=== PATIENT | male | born 1960 | race Caucasian/White ===

== ENCOUNTER 2017-07-07 16:41 | Observation (INO) | payer OTHER, SELFPAY ==
[2017-07-07] VITALS (9 sets, daily range): BP systolic 122–168; BP diastolic 69–98; PULSE 74–89; RESP 16–18; TEMP 36.1–36.9; O2SAT 95–100; BMI 34.7; BMI 31.5
--- NOTE | 2017-07-07 17:10 | RAD_ITS ---
STUDY: X-RAY - RIGHT ANKLE REASON FOR EXAM: Male, 57 years old. Deformity. Open fracture after jumping off ladder. TECHNIQUE: 2 view(s) of the ankle. COMPARISON: None. FINDINGS: There is a comminuted transverse fracture of the distal tibial diaphysis with lateral and anterior displacement of the distal fracture fragments. There is also a mildly displaced fracture of the medial malleolus. There is a comminuted fracture of the distal fibular diaphysis with anterior and lateral angulation. There is gross maintenance of the tibiotalar articulation and ankle mortise. Normal visualized talus and calcaneus. The visualized subtalar, talonavicular, calcaneocuboid and tarsal articulations are normal. There is diffuse soft tissue swelling about the ankle. There is a probable fracture along the medial aspect of the tibial shaft where the bone appears to extend beyond the soft tissues. RAD/Ankle 2 Views IMPRESSION: Displaced fracture of the distal tibia and fibula with probable open fracture medially. Electronically Signed: Armando Ram DO at 17:25 EDT Tel [phone], Service support ,
[2017-07-07 17:40] LABS: Absolute Neutrophil Count 5.9 X10^3/uL (2.0-7.7); Basophil# 0.02 X10^3/uL; Basophil% 0.2 % (0-1); Eosinophil# 0.22 X10^3/uL; Eosinophils% 2.3 % (0-5); Hematocrit 43.7 % (40-54); Hemoglobin 14.7 g/dl (13.0-16.5); Lymphocyte % 25.1 % (19-41); Mean Corp Hgb Conc 33.6 g/gl (32-36); Mean Corpuscular Hgb 32.2 pg (27.0-32.0); Mean Corpuscular Volume 95.6 fL (80-94); Mean Platelet Vol. 8.9 fl (6.2-12.0); Monocyte# 1.04 X10^3/uL; Monocyte% 10.9 % (0-10); Neutrophil # 5.87 X10^3/uL (2.7-7.7); Neutrophil % 61.2 % (47-70); Platelet Count 278 K/mm3 (150-450); RBC Distribution Width CV 13.6 % (11.6-14.6); RBC Distribution Width SD 47.3 fl (35.1-43.9); Red Blood Count 4.57 M/mm3 (4.6-6.2); White Blood Count 9.6 K/mm3 (4.4-11.0)
[2017-07-07 17:42] LABS: POSITIVE COUNT NO; POSITIVE DIFFERENTIAL NO; POSITIVE MORPHOLOGY NO
[2017-07-07 17:48] LABS: Anion Gap 7 (5-15); BUN 15 mg/dL (7-18); BUN/Creat Ratio 14.3 RATIO (10-20); Calcium,Total 8.5 mg/dL (8.5-10.1); Chloride 105 mmol/L (98-107); Creatinine, Serum 1.05 mg/dL (0.70-1.30); EST Glomerular Filtration Rate 77 mL/min (>60); Est Glom Filt Rate - Afr Amer 93 mL/min (>60); Estimated Creatinine Clearance 88.07 ml/min; Glucose 91 mg/dL (74-106); Potassium 3.7 mmol/L (3.5-5.1); Sodium Level 140 mmol/L (136-145)
--- NOTE | 2017-07-07 18:31 | CT_ITS ---
STUDY: CT RIGHT ANKLE WITHOUT CONTRAST REASON FOR EXAM: Male, 57 years old. RT TIB FIB FX AFTER JUMPING OFF A LADDER ON A SEMI RADIATION DOSAGE (If Supplied By Facility): CTDIvol = ( 15.35 ) mGy, DLP = ( 468.90 ) mGycm TECHNIQUE: Thin section transaxial imaging of the ankle was obtained, with sagittal and coronal reconstructed images. Individualized dose optimization techniques were used for this CT. COMPARISON: CR Ankle Jul 07 2017 5:20pm FINDINGS: There is an overlying fiberglass cast. Fracture medial malleolus. Fracture of the tip of the distal fibula. Fracture of the distal third of the fibula. Comminuted distal tibial fracture. There is articular extension. The distal tibial fracture is exposed to the open air. Normal talus, calcaneus, navicular and cuboid tarsal bones. Normal subtalar, talonavicular and calcaneocuboid articulations. Normal navicular-cuneiform, cuneiform tarsal bones and intercuneiform articulations. Normal tarsometatarsal articulations and visualized metatarsi. The soft tissue structures are grossly normal. CT/Extremity Lower without Contra IMPRESSION: Open fracture is noted involving the ankle. Comminuted intra-articular fracture of the tibial plafond. Fracture medial malleolus. Fracture distal fibula. Electronically Signed: Marko Dent MD at 19:33 EDT , Service support ,
--- NOTE | 2017-07-07 18:35 | ED.DCSUM_ITS ---
- ER Visit Summary Date of Service: 07/07/17 Chief Complaint: Right ankle injury History of Present Illness: The patient is a 57 M with really no medical problems who started to fall off of a trailer about 10 feet high so jumped landing on his right ankle. He immediately noted a deformity and open wound. He denies any other injuries. Currently rates his pain as 3 out of 10. His last tetanus immunization was about 1 month ago. Physical Examination: Afebrile vitals are stable Heart regular Lungs clear Abdomen soft Active full range of motion of the bilateral upper extremities and left lower extremities no evidence of head trauma Heart regular rate and rhythm Lungs clear Abdomen soft Patient has an obvious deformity of the right ankle but he is able to wiggle his toes motor is intact he has normal sensation light touch and a palpable dorsalis pedis pulse there is an open wound over the medial lower leg above the ankle roughly 2 cm with mild oozing no evidence of arterial bleeding Test Results: Ankle x-ray shows displaced fracture of the distal tibia and fibula CBC BMP and INR are unremarkable. Emergency Department Course and Treatment: Patient declined pain medications. He was given IV Ancef. I spoke to Dr. Lopez who asked that we reduce this to the best anatomical alignment possible. Patient was placed in an Ortho-Glass posterior splint with a stirrup. Dr. Lopez also requested a CT and will plan for taking the patient to the operating room for washout and external fixation. Treatment Plan: [] Disposition: To OR Impression: Open right distal tibia and fibula fracture This note was generated with [employer] dictation software. It may contain incorrect words, spelling, and punctuation that were not noted in review of the chart prior to signing ED Disposition - Plan for ED Patient: Chief Complaint: Lower Extremity Injury Referrals: Ahsan Lama MD [Primary Care Provider] -
[2017-07-07] MEDS: Cefazolin 2 GM in 0.9% Normal Saline 100 ML IV (19:00)
--- NOTE | 2017-07-07 20:31 | PCM.HP.STD ---
History of Present Illness Date of Admission: 07/07/17 Chief Complaint: Right leg pain The patient is a 57 year old M otherwise healthy patient presents today after falling off a ladder. Patient states he was working on a ladder and began to tip. He jumped trying to catch himself and landed from about 10 feet up in the year. He felt his ankle give way from underneath him. He presented to the emergency department with 10 out of 10 pain and an open wound on his leg with deformity of the ankle. In the emergency department sterile dressing was placed and patient had the fracture provisionally reduced. Patient denies any associated numbness and tingling. He denies nicotine use. He states he stopped smoking in 1996. Patient denies any history of diabetes or other medical conditions. He has not seen a doctor in 15 years. Patient states the pain is better with immobilization and elevation as well as with the splint. It is worse with motion. Pain is located at the distal leg. Medication list was reviewed with the patient. Past Medical History Allergies Sulfa (Sulfonamide Antibiotics) Allergy (Verified 07/07/17 16:46) Unknown Home Medications: Ambulatory Orders Medication Instructions Recorded NK [NK] 07/07/17 Surgical History: no surgical history Lives: Spouse/ Significant Other Smoking Status: Never smoker Tobacco Use: Non-smoker Alcohol: Occasional - Near daily beer intake Drugs: None Review of Systems Constitutional: Denies: Chills, Fever, Weight Change HEENT: Denies: Head Aches, Sinus Congestion, Sinus Drainage Cardiovascular: Denies: Chest Pain, Palpitations Respiratory: Denies: Cough, Shortness of breath at rest, Sputum production Gastrointestinal: Denies: Abdominal Pain, Nausea, Vomiting Genitourinary: Denies: Dysuria Musculoskeletal: Reports: Joint Pain - See HPI Skin: Reports: Wounds - See HPI Neurological: Denies: Numbness, Tingling, Focal weakness Psychiatric: Denies: Anxiety, Depression, Homicidal Ideations, Suicidal Ideations Hematologic/ Lymphatic: Denies: Easy Bruising, Easy Bleeding VTE Information - Inpt Only VTE Present on Admission: No VTE Mechan Device Prophylaxis: SCD's, Thigh High MARLENE Hose VTE Pharm Prophylaxis ordered?: Yes Objective: CT scan and x-rays of right ankle reveal comminuted intra-articular P1 fracture of the right tibia and distal fibula fracture - Physical Exam General: Alert, Oriented x3, Cooperative HEENT: Atraumatic Oral: Moist Mucosa Neck: No JVD Lungs: Normal air movement Abdomen: Non-Distended Extremities: - - Right lower extremity: Calves are soft and supple with soft compartments. Sensations intact light touch SP, DP, tibial nerve distributions. Patient does have a splint on with noticeable blood at site of wound. Toes are warm and pink with brisk cap refill. Patient is able to wiggle toes with intact motor. Vital Signs Temp Pulse Resp BP Pulse Ox 98.2 F 84 16 127/69 H 99 07/07/17 16:43 07/07/17 19:55 07/07/17 19:55 07/07/17 19:55 07/07/17 19:55 Oxygen Delivery Method Room Air Weight: 270 lb 8.115 oz Body Mass Index (BMI) 34.7 Laboratory Tests Past 24 Hrs 07/07/17 07/07/17 07/07/17 16:50 16:50 16:50 WBC 9.6 RBC 4.57 L Hgb 14.7 Hct 43.7 MCV 95.6 H MCH 32.2 H MCHC 33.6 RDW 13.6 RDW Differential 47.3 H Plt Count 278 MPV 8.9 Immature Gran % (Auto) 0.300 Neut % (Auto) 61.2 Lymph % (Auto) 25.1 Clare % (Auto) 10.9 H Eos % (Auto) 2.3 Baso % (Auto) 0.2 Absolute Neuts (auto) 5.9 Absolute Lymphs (auto) 2.40 Total Counted Not Reportable PT 13.0 INR 1.0 Sodium 140 Potassium 3.7 Chloride 105 Carbon Dioxide 28.0 Anion Gap 7 BUN 15 Creatinine 1.05 Estim Creat Clear Calc 88.07 Est GFR (MDRD) Af Amer 93 Est GFR (MDRD) Non-Af 77 BUN/Creatinine Ratio 14.3 Glucose 91 Calcium 8.5 Assessment/Plan Grade 2 open right pilon fracture Patient was counseled on risks and benefits of treatment and natural history of this disease process. Based on the nature of the open fracture he is at risk for tetanus and infection. He was administered 2 g of Ancef in the emergency department. His tetanus is up-to-date. At this time I recommended provisional fixation and irrigation debridement of the wound which includes an external fixator. Risks and benefits of the procedure were discussed the patient including but not limited to blood loss, DVTs, PEs, neurovascular damage, infection and general risk of anesthesia. Patient lives a healthy male. At this time he wishes to proceed and is able to sign informed consent. We will proceed with surgery tonight. [facility] Office:
--- NOTE | 2017-07-07 20:45 | RAD_ITS ---
STUDY: X-RAY - RIGHT ANKLE REASON FOR EXAM: Male, 57 years old. RIGHT ANKLE EXTERNAL FIXATION. A LEFT LATERAL CALCANEUS VIEW WAS TAKEN FOR COMPARISON AND MARKED LEFT ON THE IMAGE TECHNIQUE: 5 view(s) of the ankle. COMPARISON: CR Ankle Jul 07 2017 5:20pm FINDINGS: Comminuted distal fibular fracture. Comminuted distal tibial fracture. Fracture of the medial malleolus. Sequential images demonstrate placement of an external fixator. RAD/Ankle 2 Views IMPRESSION: Sequential images demonstrate placement of an external fixator. Electronically Signed: Marko Dent MD at 22:39 EDT , Service support ,
--- NOTE | 2017-07-07 22:05 | PCM.OPRPT ---
Report of Operation Date of Procedure: 07/07/17 Pre-Operative Diagnosis: Grade 2 open right Pilon fracture Post-Operative Diagnosis: Grade 2 open right Pilon fracture Surgery/Procedure Performed:: 1. Irrigation debridement skin subcutaneous tissue muscle and bone right leg Pilon fracture. 2. Placement of multiplanar ex fix right leg. 3. Complex wound closure right leg wound 7 cm. 4. Fluoroscopic examination of left calcaneus Description of Surgical Findings:: Patient had 3 cm in length overall laceration credit compliance officer: Mima Albert Type of Anesthesia:: Spinal Anesthesiologist: Spike Moore Special Medications: 2 Grams Ancef Specimen's removed: Small 1 cm x 1 cm portion of cortical bone was denuded of soft tissue and nonviable was removed from the wound Estimated Blood Loss (mL): 15 Fluids Replaced: Crystalloid Description of Procedure: Brief history operative indications: 57-year-old male who presented to the hospital after a 10 foot fall from a ladder. Patient presented with a primary complaint of right leg pain with open wound. He was consented for surgery recommended open debridement and irrigation with placement of external fixator. Also we noticed a contusion on his left posterior medial heel while prepping him he had not previously complained of. We elected to fluoroscopically examine this. Patient demonstrated understanding of the risks and benefits of surgery as noted in his H&P and was able signed informed consent. Procedure: On the date of the procedure patient's right leg was marked in the preoperative area. He was brought back to the operating room he was transferred to the table in the supine position. Spinal anesthesia was placed with the patient sitting up and patient was placed back in the supine position. All bony prominences were identified well-padded. Bump was placed underneath the right hip and blankets were placed underneath the right leg to elevate it. At this time we noted the posterior medial contusion in the left posterior calcaneus. Tourniquet was placed on the right upper thigh and the splint was removed. At this time we are able to fully examine the wound patient was noted to have a 3 cm wound that was L-shaped over the medial ankle/distal leg. Right lower extremity was then prepped in a sterile fashion using Betadine prep while the surgeon scrubbed. Upon reentering the room the right lower extremity was draped in a standard orthopedic fashion and a timeout was called. Everyone agreed up on the side, the site, and the procedure to be performed, patient's identity and antibiotics given. Extension of the wound was marked out proximally and distally to extend wound and explore the wound. Esmarch bandage was used to examine at the extremity and tourniquet was placed up to 250 mmHg. Skin was incised proximally and distally roughly 2 cm for a total wound. Sharp dissection was taken through skin and blunt dissection was taken through soft tissues. It was noted that there was a fair amount of degloving of the fracture site. We then directed our attention towards the skin with a traumatized necrotic tissue was debrided. We debrided 2 mm of tissue on both the medial and lateral portions of the L-shaped laceration. We then debrided fascia fatty tissue muscle and bone from the wound. All visible debris was removed grossly. A small 1 cm x 1 cm fragment of cortical bone medially was removed from the wound because it had no soft tissue attachments. Fracture was then delivered to the wound and fracture was aggressively debrided using curettes and rongeur. After this the fracture was then again delivered through the wound and 6 L of normal saline under low pressure lavage were irrigated throughout the wound. Once this was completed attention was directed towards the heel. Live fluoroscopy was used to found the posterior inferior quarter of the calcaneus and an incision was made on the skin in horizontal fashion. Starting point was found with the tip of the calcaneal pin and once verified with live fluoroscopy calcaneal pin was placed in a through and through fashion placing a incision on the lateral heel once the pin was tenting the skin. Once the calcaneal pin was placed we then went to the tibia where the anteromedial cortex was marked and 2 small incisions were made using a 15 blade scalpel after marking them out with the parallel pin guide. The holes were predrilled and bicortical pins were placed these were 5 mm pins. Once these pins were placed position was verified under live fluoroscopy. External fixator pins and bars were then assembled and traction was placed on the fracture and ankle. Live fluoroscopy was used to verify the fracture while the external fixator was tightened down. Once initial fixation was done a single pin was placed in the first metatarsal using live fluoroscopy to verify pin placement. Once this was done the foot was dorsiflexed in appropriate position to help reduce the ankle and tightened into place with an additional connector bar. Final x-rays were taken showing the fracture was appropriately reduced and joint was distracted. 3-0 nylon suture was then used to close the 7 cm wound using mattress sutures tension on the skin. Once this was finished Xeroform dressing was placed around all pin sites it over the laceration repair. Sterile dressing was placed, compressive dressing was placed. Tourniquet was let down an Christiano bandage was placed. Excessive pins were cut and pin protectors were placed on the tops of the pins. At this time we directed our attention towards the left heel with a sterile dressing in place the drapes were removed and a lateral x-ray of the left calcaneus was taken and no fracture was identified at this time. Patient was then awakened by anesthesia transferred to the orthopaedic hospital and transferred to the PACU for recovery in stable condition. Operative plan: Patient will receive 24 hours of antibiotics. Plan will be for discharge tomorrow. I will plan for follow-up with an orthopedic traumatologist this week for definitive care and fixation. Patient be placed on baby aspirin twice a day for DVT prophylaxis. Grafts/Implants Used: synthes ex-fix - Complications none - Admit VTE Documentation VTE Present on Admission: No VTE Mechan Device Prophylaxis: SCD's VTE Pharm Prophylaxis ordered?: Yes
--- NOTE | 2017-07-07 22:34 | RAD_ITS ---
STUDY: X-RAY - LEFT CALCANEUS REASON FOR EXAM: Male, 57 years old. BRUISING TO LEFT HEEL, S/P TRAUMA AND RIGHT ANKLE FX TECHNIQUE: 2 view(s) of the calcaneus were obtained. COMPARISON: None. FINDINGS: Normal visualized calcaneus. RAD/Calcaneus min 2 Views IMPRESSION: Normal x-ray examination of the calcaneus. Electronically Signed: Marko Dent MD at 23:04 EDT , Service support ,
--- NOTE | 2017-07-07 22:35 | PCM.DC.TKR ---
Discharge Diet: No Restrictions Discharge Activity: May Not Drive May shower in (days): 5 May resume sexual activity in: No Restrictions Ice area for (Minutes): 20 - every hour while awake. Weight Bearing Status: No weight bearing Elevate: Operative Extremity Call your doctor if your incision/area has: Continuous Slow Oozing, Sudden Increased Bleeding, Increased Pain/ Swelling, Increased Redness, Foul Smelling Discharge Call your doctor if you observe: Fever of 101 or Higher, Coldness, Increased Pain, Numbness or Tingling, Change in Color, Calf discomfort, Uncontrolled pain Change Dressing in (Days):: 2 - and daily as needed. Cleanse incision/area with: Keep Dressing Clean & Dry Additional Dressing/Incision Instructions:: May remove operative dressing on postop day 2 after that: 1. Keep laceration covered with sterile dressing change daily. 2. Every day take a 50-50 mixture of hydrogen peroxide and warm water and use a Q-tip to remove any crusts from pin sites to allow for pin site drainage and prevent infections Allergies/Adverse Reactions: Allergies Sulfa (Sulfonamide Antibiotics) Allergy (Verified 07/07/17 16:46) Unknown Medications to take at Discharge Acetaminophen [Tylenol] 1,000 mg PO Q8 #90 tab 07/08/17 Aspirin [Aspirin, Baby] 81 mg PO BIDCM #30 tab.chew 07/08/17 Ensure Enlive 120 ml PO TIDCM liquid 07/08/17 Famotidine [Pepcid] 20 mg PO DAILY #30 tab 07/08/17 Oxycodone [Oxyir] 5 - 10 mg PO Q4H PRN PRN 6 Days #60 tablet 07/08/17 Senna/Docusate Sodium [Senokot-S] 2 tablet PO BID PRN PRN tablet 07/08/17 The following prescriptions were given: Oxycodone [Oxyir] 5 - 10 mg PO Q4H PRN PRN 6 Days #60 tablet PRN Reason: Pain Acetaminophen [Tylenol] 1,000 mg PO Q8 #90 tab Famotidine [Pepcid] 20 mg PO DAILY #30 tab Aspirin [Aspirin, Baby] 81 mg PO BIDCM #30 tab.chew Primary Care Physician: Ahsan Lama MD [Primary Care Provider] - Please Follow Up With: Deniz Alfonso MD - [phone] When: Orthopaedic traumatologist Jojo Saunders, 07-10-2017
--- NOTE | 2017-07-07 22:36 | RAD_ITS ---
STUDY: X-RAY - RIGHT ANKLE REASON FOR EXAM: Male, 57 years old. POST OP EXTERNAL FIXATION OF RIGHT ANKLE FX TECHNIQUE: 3 view(s) of the ankle. COMPARISON: CR Ankle Right Jul 07 2017 8:22pm FINDINGS: Comminuted distal fibular fracture. Comminuted distal tibial fracture. Fracture of the medial malleolus. Ankle mortise appears intact. Tibial fracture extends to the tibial plafond. External fixator in place. There is overlying postoperative soft tissue air. Normal visualized talus and calcaneus. RAD/Ankle 2 Views IMPRESSION: Successful external fixator placement. Electronically Signed: Marko Dent MD at 23:17 EDT , Service support ,
[2017-07-07] MEDS: Famotidine 20 MG Tablet PO (23:39)
[2017-07-07] MEDS: Lactated Ringers 1,000 ML 125 ML IV (23:52)
[2017-07-08 00:15] VITALS: BP 168/93; PULSE 95; RESP 18; TEMP 37.1; O2SAT 96
[2017-07-08 01:11] VITALS: BP 151/76; PULSE 96; RESP 18; TEMP 37.3; O2SAT 96
[2017-07-08] MEDS: oxyCODONE 5 MG Tablet PO ×5 (02:09→21:05)
[2017-07-08] MEDS: Acetaminophen 500 MG Tablet 1000 MG PO ×3 (02:10→21:05)
[2017-07-08] MEDS: Cefazolin 1 GM/50 ML BAG IV ×2 (02:37→11:22)
[2017-07-08 03:11] VITALS: BP 139/71; PULSE 80; RESP 18; TEMP 37.4; O2SAT 96
--- NOTE | 2017-07-08 07:10 | PN.ORTHO_ITS ---
Subjective: Patient is doing well this morning. Did have a fair amount of pain overnight. Reports no numbness and tingling in his foot. Did get IV pain medicines overnight. Currently getting 24 hours of antibiotics. Foot is elevated. No chest pain or shortness of breath. Objective: 2 views of the left calcaneus reveal no fractures on x-ray. Operative ankle films show good sagittal and coronal alignment of the fracture. - Physical Exam General: Alert, Oriented x3, Cooperative Extremities: - - Right lower extremity: Dressing is clean dry and intact. Sternal fixator is intact. Pins and bars are clear of skin. Wiggles all toes. Digits are warm and pink with brisk cap refill. Sensations intact light touch SP/DP/sural/saphenous/tibial nerve distributions. Left foot: Contusion over the posterior medial ankle. Sensations intact neurovascular intact distally. Vital Signs Temp Pulse Resp BP Pulse Ox 99.4 F H 80 18 139/71 H 96 07/08/17 03:11 07/08/17 03:11 07/08/17 03:11 07/08/17 03:11 07/08/17 03:11 Oxygen Delivery Method Room Air Weight: 245 lb 8.115 oz Body Mass Index (BMI) 31.5 Intake and Output for Last 24 Hours 07/06/17 07/07/17 07/08/17 23:59 23:59 23:59 Intake Total 400 / 400 1389 / 1389 Output Total 1075 / 1075 Balance 400 / 400 314 / 314 Assessment/Plan Grade 2 open right pilon fracture. Postop day 1 irrigation debridement and placement of external fixator right leg 1. 24 hours of antibiotics 2. Nonweightbearing right lower extremity 3. Physical therapy: Crutch training/ADLs. 4. DVT prophylaxis: 81 mg aspirin twice daily 5. Aggressive ice and elevation, elevated above level of heart keep cold bags of ice. 6. Pain control: Continue current regimen wean from IV antibiotics 7. Disposition: Plan for discharge home today if pain under control and completes 24 hours of antibiotics. Plan is for follow-up in [place] with an orthopedic traumatologist of this week. Pin care was discussed with the patient pin care instructions on the discharge instructions patient is to do pin care once a day with 50-50 mixture of hydrogen peroxide and water. [facility] Office:
[2017-07-08 08:15] VITALS: BP 161/84; PULSE 68; RESP 16; TEMP 36.8; O2SAT 98
[2017-07-08] MEDS: Aspirin 81 MG TAB.CHEW PO ×2 (08:16→17:00)
--- NOTE | 2017-07-08 08:40 | CASEMGMT ---
Call received from Dr. Lopez with request for appt on with Dr. Lindsey, and to have pt take packet with xray discs and H/P, DC summary to appt. Sec. made appt, copy to go with pt along with packet on dc. [facility] nurse is aware. Blayne QUEENN RN ACM
[2017-07-08] MEDS: Famotidine 20 MG Tablet PO (08:59)
[2017-07-08] MEDS: 0.9% NaCl Peripheral Flush Adult/Peds IV ×3 (09:23→14:35)
--- NOTE | 2017-07-08 10:00 | PCA ---
marquita called and asked if we could make an apt for patient for yessi marmolejo an orthopaedic taumatologist up in [place]. I made it for july 10 at 1330 pm.
--- NOTE | 2017-07-08 14:03 | CHAPLAIN ---
Type of Pastoral Visit _x__ Initial Visit ___ Follow-up Visit ___ On-call Visit ___ General Patient Visit ___ Spiritual Assessment ___ Family Conference ___ Bereavement ___ Rapid Response ___ Code Blue ___ Other (describe below) Pastoral Care Referral From _x__ Patient ___ Family ___ Nurse ___ Physician ___ Esthetician ___ Skate Maker ___ Other (describe below) Sacrament/Intervention _x__ Active listening ___ Anointing ___ Uatsdin ___ Bereavement ___ Communion ___ Jennifer exploration ___ ___ Life review _x__ Prayer ___ Reconciliation ___ Sacrament of Sick _x__ Supportive presence ___ Wedding ___ Other (describe below) Pastoral Comments
[2017-07-08 14:25] VITALS: BP 139/81; PULSE 84; RESP 16; TEMP 36.9; O2SAT 97
[2017-07-08 20:25] VITALS: BP 119/74; PULSE 77; RESP 18; TEMP 37.2; O2SAT 97
--- NOTE | 2017-07-08 21:05 | NURSING ---
Addendum entered by Beverley Barrientos 07/08/17 22:25: At around 2104, this RN still had not seen Dr. Lopez and pt stated he still had not been in. This RN discussed with pt the option of staying one more night to make sure his pain is under control and that he gets a little more rest before going home. Pt seemed to be in agreement with this RN. Original Note: Pt was hoping to see Dr. Jessica granados to discuss his opinions on pt being discharged [place].
[2017-07-09 02:25] VITALS: BP 146/76; PULSE 71; RESP 18; TEMP 36.9; O2SAT 98
[2017-07-09] MEDS: oxyCODONE 5 MG Tablet PO (03:07)
[2017-07-09] MEDS: Acetaminophen 500 MG Tablet 1000 MG PO (06:08)
--- NOTE | 2017-07-09 07:33 | PCM.PN.ORT ---
Subjective: The patient was sitting in bed upon examination. Patient denies any chest pain, shortness of breath, dizziness, lightheadedness, nausea or vomiting, or calf pain. Patient denies any numbness and tingling into the right lower extremity. Pain is controlled on medications. No adverse overnight events. Plan is for patient to see Dr. Alfonso tomorrow in [place] for further treatment of the right ankle fracture. Objective: Vital signs stable and afebrile. Patient is able to wiggle his toes Sensation is intact to light touch to saphenous, sural, superficial and deep peroneal, and distribution. Dressing over ex-fix is without breakthrough drainage. - Physical Exam General: Alert, Oriented x3, Cooperative, No apparent distress Vital Signs Temp Pulse Resp BP Pulse Ox 98.5 F 71 18 146/76 H 98 07/09/17 02:25 07/09/17 02:25 07/09/17 02:25 07/09/17 02:25 07/09/17 02:25 Oxygen Delivery Method Room Air Weight: 111.36 kg Body Mass Index (BMI) 31.5 Intake and Output for Last 24 Hours 07/07/17 07/08/17 07/09/17 23:59 23:59 23:59 Intake Total 400 / 400 2439 / 2439 500 / 500 Output Total 1775 / 1775 1025 / 1025 Balance 400 / 400 664 / 664 -525 / -525 Assessment/Plan 1. S/P grade 2 open right pilon fracture POD #2 2. Continue Pain Medications: Tylenol and OxyIR 3. DVT Prophylaxis: 81 mg aspirin 4. PT/OT: Crutches, nonweightbearing right lower extremity 5. Encouraged Incentive Spirometry 6. Disposition: Patient is to continue with ice and elevation above the level of the heart. He is to continue to do pin care once a day with 50-50 mixture of hydrogen peroxide and water. Plan is for patient to see orthopedic traumatologist tomorrow in [place]. Patient has all medications for discharge.
--- NOTE | 2017-07-09 07:39 | PN.ORTHO_ITS ---
Subjective: The patient was sitting in bed upon examination. Patient denies any chest pain , shortness of breath, dizziness, lightheadedness, nausea or vomiting, or calf pain. Patient denies any numbness and tingling into the right lower extremity. Pain is controlled on medications. No adverse overnight events. Plan is for patient to see Dr. Alfonso tomorrow in [place] for further treatment of the right ankle fracture. Objective: Vital signs stable and afebrile. Patient is able to wiggle his toes Sensation is intact to light touch to saphenous, sural, superficial and deep peroneal, and distribution. Dressing over ex-fix is without breakthrough drainage. - Physical Exam General: Alert, Oriented x3, Cooperative, No apparent distress Vital Signs Temp Pulse Resp BP Pulse Ox 98.5 F 71 18 146/76 H 98 07/09/17 02:25 07/09/17 02:25 07/09/17 02:25 07/09/17 02:25 07/09/17 02:25 Oxygen Delivery Method Room Air Weight: 111.36 kg Body Mass Index (BMI) 31.5 Intake and Output for Last 24 Hours 07/07/17 07/08/17 07/09/17 23:59 23:59 23:59 Intake Total 400 / 400 2439 / 2439 500 / 500 Output Total 1775 / 1775 1025 / 1025 Balance 400 / 400 664 / 664 -525 / -525 Assessment/Plan 1. S/P grade 2 open right pilon fracture POD #2 2. Continue Pain Medications: Tylenol and OxyIR 3. DVT Prophylaxis: 81 mg aspirin 4. PT/OT: Crutches, nonweightbearing right lower extremity 5. Encouraged Incentive Spirometry 6. Disposition: Patient is to continue with ice and elevation above the level of the heart. He is to continue to do pin care once a day with 50-50 mixture of hydrogen peroxide and water. Plan is for patient to see orthopedic traumatologist tomorrow in [place]. Patient has all medications for discharge.
[2017-07-09 08:25] VITALS: BP 160/89; PULSE 86; RESP 18; TEMP 37.3
== END 2017-07-09 09:24 | disposition home or self-care (01) ==
LOC: ED 18:06 → SDC 20:20 → AC 20:22 → MS2 22:05 → SDC 07-08 00:07 → MS2 07-08 09:13
PROVIDERS: Admitting Provider Specialist; Emergency Provider Emergency Medicine; Family Provider Family Medicine; PCP Family Medicine; Visit Provider Specialist
PROC: (CPT 27814; principal; 2017-07-07 20:00)
DX: S82.871B Displaced pilon fracture of right tibia, initial encounter for open fracture type I or II (principal); S82.831B Other fracture of upper and lower end of right fibula, initial encounter for open fracture type I or II; Y93.89 Activity, other specified; Y92.89 Other specified places as the place of occurrence of the external cause; Z87.891 Personal history of nicotine dependence; W11.XXXA Fall on and from ladder, initial encounter
CPT/HCPCS: 01480; 11012; 13121; 20692; 27825; 64450; 73600; 73650; 73700; 76000; 80048; 85025; 85610; 96361; 96365; 96366; 96375; 96376; 97162; 97166; 99218; 99285; J7030; J7120; A4216; G0378

== ENCOUNTER → 2018-01-14 14:10 | Outpatient (CLI) | payer OTHER, SELFPAY ==
--- NOTE | 2018-01-14 14:14 | CT_ITS ---
STUDY: CT RIGHT ANKLE WITHOUT CONTRAST REASON FOR EXAM: Male, 57 years old. Right ankle fracture June 2017 with multiple surgeries, with hardware and skin grafting. RADIATION DOSAGE (If Supplied By Facility): CTDIvol = ( 15.35 ) mGy, DLP = ( 681.20 ) mGycm TECHNIQUE: Thin section transaxial imaging of the ankle was obtained, with sagittal and coronal reconstructed images. Individualized dose optimization techniques were used for this CT. COMPARISON: X-ray calcaneus, ankle 07/07/2017. CT lower extremity 07/07/2017.. FINDINGS: External fixator device in place. Screw fixation of the medial malleolus. Screw fixation of the tibial plafond fracture. Mild generalized osteopenia of the distal tibia and fibula above the fractures. More prominent osteopenia throughout the foot. 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 Differential considerations might include reflex sympathetic dystrophy as a sequela of traumatic injury. Comminution with persistent nonunion of the distal tibia metadiaphyseal fracture. Below that, fractures involving screw fixation of the medial malleolus, and screw fixation of the tibial apophysis appears to be fused. There is comminution with incomplete union of the distal fibular diaphysis fracture. There is extraosseous bone formation across the tibiofibular interosseous ligament. The tibiotalar articulation is preserved. The dome of the talus shows no defects. The subtalar joint is preserved. There is relatively diffuse edema within the subcutaneous soft tissues just above and around the ankle, and extending into the dorsum and dorsal lateral aspects of the foot. This is associated with skin thickening surrounding the medial ankle. There is no visible soft tissue fluid collection. CT/Extremity Lower without Contra IMPRESSION: Incomplete union of the distal tibial metadiaphyseal fracture, and of the fibular diaphyseal fracture. Electronically Signed: Erik Tadeo, at 10:25 EDT Tel , Service support ,
== END ==
PROVIDERS: Family Provider Family Medicine; PCP Family Medicine; Visit Provider Orthopaedic Surgery
DX: S82.871 Displaced pilon fracture of right tibia (principal); X58.XXXD Exposure to other specified factors, subsequent encounter
CPT/HCPCS: 73700

== ENCOUNTER → 2018-11-23 14:46 | Outpatient (CLI) | payer OTHER, SELFPAY ==
--- NOTE | 2018-11-23 14:53 | CT_ITS ---
STUDY: CT LOWER EXTREMITY WITHOUT CONTRAST RIGHT REASON FOR EXAM: Male, 58 years old. Posttraumatic arthritis. RADIATION DOSAGE (If Supplied By Facility): CTDIvol = ( 6.18 ) mGy, DLP = ( 139.50 ) mGycm. Individualized dose optimization techniques were used for this CT.? TECHNIQUE: Axial images were obtained from the distal tibial shaft through the ankle without contrast. Coronal and sagittal reformats were performed. COMPARISON: 01/14/2018. FINDINGS: There is diffuse bone demineralization consistent with disuse. There is united fracture of the distal fibular shaft with mild periosteal reaction. Status post screw fixation of the distal tibia and medial malleolus. There is bridging callus. There is incomplete internal union. There is marked narrowing of the tibiotalar joint. There is mild narrowing of the talofibular joint. Alignment of the ankle and hindfoot is normal. No new fracture. Moderate subcutaneous edema. CT/Extremity Lower without Contra IMPRESSION: 1. Marked tibiotalar narrowing consistent with arthrosis. 2. Healing fracture of the distal tibia. 3. United distal fibular shaft fracture. 4. Bone demineralization. Electronically Signed: Nita Rodriguez MD at 17:45 EDT Tel , Service support ,
--- NOTE | 2018-11-23 15:12 | CT_ITS ---
STUDY: CT LOWER EXTREMITY WITHOUT CONTRAST RIGHT REASON FOR EXAM: Male, 58 years old. Posttraumatic arthritis. RADIATION DOSAGE (If Supplied By Facility): CTDIvol = ( 6.18 ) mGy, DLP = ( 139.50 ) mGycm. Individualized dose optimization techniques were used for this CT.? TECHNIQUE: Axial images were obtained from the distal tibial shaft through the ankle without contrast. Coronal and sagittal reformats were performed. COMPARISON: 01/14/2018. FINDINGS: There is diffuse bone demineralization consistent with disuse. There is united fracture of the distal fibular shaft with mild periosteal reaction. Status post screw fixation of the distal tibia and medial malleolus. There is bridging callus. There is incomplete internal union. There is marked narrowing of the tibiotalar joint. There is mild narrowing of the talofibular joint. Alignment of the ankle and hindfoot is normal. No new fracture. Moderate subcutaneous edema. CT/Coronals Sag Multi Obl 3-D Rec IMPRESSION: 1. Marked tibiotalar narrowing consistent with arthrosis. 2. Healing fracture of the distal tibia. 3. United distal fibular shaft fracture. 4. Bone demineralization. Electronically Signed: Nita Rodriguez MD at 17:45 EDT Tel , Service support ,
== END ==
PROVIDERS: Family Provider Family Medicine; PCP Family Medicine; Referring Provider Podiatrist; Visit Provider Podiatrist
DX: M19.171 Post-traumatic osteoarthritis, right ankle and foot (principal)
CPT/HCPCS: 73700; 76377

== ENCOUNTER → 2018-12-04 12:39 | Outpatient (CLI) | payer OTHER, SELFPAY ==
[2017-07-07 23:11] VITALS: BMI 31.5
[2018-12-04 14:21] LABS: Erythrocyte Sedimentation Rate 37 mm/hr (0-20)
[2018-12-04 14:23] LABS: Absolute Lymphocyte Count 2.05 X10^3/uL (0.83-4.51); Absolute Neutrophil Count 5.6 X10^3/uL (2.0-7.7); Basophil# 0.05 X10^3/uL; Basophil% 0.5 % (0-1); Eosinophil# 0.23 X10^3/uL; Eosinophils% 2.5 % (0-5); Hematocrit 42.9 % (40-54); Hemoglobin 14.3 g/dL (13.0-16.5); Lymphocyte # 2.05 X10^3/ul (4.0); Lymphocyte % 22.5 % (19-41); Mean Corp Hgb Conc 33.3 g/dL (32-36); Mean Corpuscular Hgb 31.3 pg (27.0-32.0); Mean Corpuscular Volume 93.9 fL (80-94); Mean Platelet Vol. 8.8 fl (6.2-12.0); Monocyte# 1.16 X10^3/uL; Monocyte% 12.7 % (0-10); NRBC Flagged by Analyzer 0 % (0-5); Neutrophil # 5.56 X10^3/uL (2.7-7.7); Neutrophil % 61.1 % (47-70); Platelet Count 436 K/mm3 (150-450); RBC Distribution Width CV 14.2 % (11.6-14.6); RBC Distribution Width SD 48.8 fl (35.1-43.9); Red Blood Count 4.57 M/mm3 (4.6-6.2); White Blood Count 9.1 K/mm3 (4.4-11.0)
== END ==
PROVIDERS: Family Provider Family Medicine; PCP Family Medicine; Referring Provider Podiatrist; Visit Provider Podiatrist
DX: M19.171 Post-traumatic osteoarthritis, right ankle and foot (principal)
CPT/HCPCS: 36415; 85025; 85652; 86140

== ENCOUNTER → 2019-02-19 09:19 | Outpatient (CLI) | payer OTHER, SELFPAY ==
[2017-07-07 23:11] VITALS: BMI 31.5
[2019-02-19 12:09] LABS: Absolute Lymphocyte Count 2.03 X10^3/uL (0.83-4.51); Basophil# 0.03 X10^3/uL; Basophil% 0.4 % (0-1); Eosinophils% 6.8 % (0-5); Hematocrit 44.5 % (40-54); Hemoglobin 14.7 g/dL (13.0-16.5); Lymphocyte # 2.03 X10^3/ul (4.0); Lymphocyte % 27.5 % (19-41); Mean Corpuscular Hgb 30.9 pg (27.0-32.0); Mean Corpuscular Volume 93.5 fL (80-94); Mean Platelet Vol. 9.5 fl (6.2-12.0); Monocyte# 0.76 X10^3/uL; Monocyte% 10.3 % (0-10); NRBC Flagged by Analyzer 0 % (0-5); Neutrophil # 4.04 X10^3/uL (2.7-7.7); Neutrophil % 54.6 % (47-70); Platelet Count 339 K/mm3 (150-450); RBC Distribution Width SD 47.6 fl (35.1-43.9); Red Blood Count 4.76 M/mm3 (4.6-6.2); White Blood Count 7.4 K/mm3 (4.4-11.0)
[2019-02-19 12:35] LABS: ALB/GLOB Ratio 0.8 RATIO (0.9-2.4); AST(SGOT) 25 U/L (15-37); Alanine Aminotransfer ALT/SGPT 26 U/L (16-61); Albumin, Serum 3.3 g/dL (3.2-5.0); Alkaline Phosphatase 107 U/L (45-117); Anion Gap 6 (5-15); BUN 16 mg/dL (7-18); BUN/Creat Ratio 15.1 RATIO (10-20); Calcium,Total 8.5 mg/dL (8.5-10.1); Chloride 106 mmol/L (98-107); Creatinine, Serum 1.06 mg/dL (0.70-1.30); EST Glomerular Filtration Rate 76 mL/min (>60); Est Glom Filt Rate - Afr Amer 92 mL/min (>60); Globulin 4.2 g/dL (2.2-4.2); Glucose 131 mg/dL (74-106); Potassium 4.3 mmol/L (3.5-5.1); Protein, Total 7.5 g/dL (6.4-8.2); Sodium Level 138 mmol/L (136-145)
== END ==
PROVIDERS: Family Provider Family Medicine; PCP Family Medicine
DX: M86.669 Other chronic osteomyelitis, unspecified tibia and fibula (principal)
CPT/HCPCS: 36415; 80053; 85025

== ENCOUNTER → 2019-03-04 10:52 | Outpatient (CLI) | payer OTHER, SELFPAY ==
[2017-07-07 23:11] VITALS: BMI 31.5
[2019-03-04 12:37] LABS: Absolute Lymphocyte Count 2.15 X10^3/uL (0.83-4.51); Absolute Neutrophil Count 4.4 X10^3/uL (2.0-7.7); Basophil# 0.04 X10^3/uL; Basophil% 0.5 % (0-1); Eosinophil# 0.21 X10^3/uL; Eosinophils% 2.6 % (0-5); Hematocrit 44.5 % (40-54); Hemoglobin 14.8 g/dL (13.0-16.5); Lymphocyte # 2.15 X10^3/ul (4.0); Lymphocyte % 26.9 % (19-41); Mean Corp Hgb Conc 33.3 g/dL (32-36); Mean Corpuscular Volume 93.3 fL (80-94); Mean Platelet Vol. 8.9 fl (6.2-12.0); Monocyte# 1.15 X10^3/uL; Monocyte% 14.4 % (0-10); NRBC Flagged by Analyzer 0 % (0-5); Neutrophil % 55.1 % (47-70); Platelet Count 322 K/mm3 (150-450); RBC Distribution Width CV 13.9 % (11.6-14.6); RBC Distribution Width SD 47.9 fl (35.1-43.9); Red Blood Count 4.77 M/mm3 (4.6-6.2)
[2019-03-04 12:43] LABS: ALB/GLOB Ratio 0.8 RATIO (0.9-2.4); AST(SGOT) 26 U/L (15-37); Alanine Aminotransfer ALT/SGPT 24 U/L (16-61); Albumin, Serum 3.2 g/dL (3.2-5.0); Alkaline Phosphatase 84 U/L (45-117); Anion Gap 8 (5-15); BUN 13 mg/dL (7-18); BUN/Creat Ratio 11.5 RATIO (10-20); Calcium,Total 8.6 mg/dL (8.5-10.1); Chloride 103 mmol/L (98-107); Creatinine, Serum 1.13 mg/dL (0.70-1.30); EST Glomerular Filtration Rate 70 mL/min (>60); Est Glom Filt Rate - Afr Amer 85 mL/min (>60); Globulin 4.2 g/dL (2.2-4.2); Glucose 98 mg/dL (74-106); Potassium 4.7 mmol/L (3.5-5.1); Protein, Total 7.4 g/dL (6.4-8.2); Sodium Level 137 mmol/L (136-145)
== END ==
PROVIDERS: Family Provider Family Medicine; PCP Family Medicine
DX: M86.669 Other chronic osteomyelitis, unspecified tibia and fibula (principal)
CPT/HCPCS: 36415; 80053; 85025

== ENCOUNTER → 2019-04-12 09:29 | Outpatient (CLI) | payer OTHER, SELFPAY ==
[2019-04-12 12:26] LABS: Absolute Lymphocyte Count 2.01 X10^3/uL (0.83-4.51); Absolute Neutrophil Count 4.1 X10^3/uL (2.0-7.7); Basophil# 0.03 X10^3/uL; Basophil% 0.4 % (0-1); Eosinophil# 0.22 X10^3/uL; Eosinophils% 2.9 % (0-5); Hemoglobin 14.2 g/dL (13.0-16.5); Lymphocyte # 2.01 X10^3/ul (4.0); Lymphocyte % 26.5 % (19-41); Mean Corp Hgb Conc 32.3 g/dL (32-36); Mean Corpuscular Hgb 30.3 pg (27.0-32.0); Monocyte# 1.22 X10^3/uL; Monocyte% 16.1 % (0-10); NRBC Flagged by Analyzer 0 % (0-5); Neutrophil # 4.07 X10^3/uL (2.7-7.7); Neutrophil % 53.7 % (47-70); Platelet Count 359 K/mm3 (150-450); RBC Distribution Width CV 14.7 % (11.6-14.6); RBC Distribution Width SD 50.9 fl (35.1-43.9); Red Blood Count 4.68 M/mm3 (4.6-6.2); White Blood Count 7.6 K/mm3 (4.4-11.0)
[2019-04-12 13:01] LABS: ALB/GLOB Ratio 0.8 RATIO (0.9-2.4); AST(SGOT) 25 U/L (15-37); Alanine Aminotransfer ALT/SGPT 26 U/L (16-61); Albumin, Serum 3.3 g/dL (3.2-5.0); Alkaline Phosphatase 93 U/L (45-117); Anion Gap 5 (5-15); BUN 15 mg/dL (7-18); BUN/Creat Ratio 13.2 RATIO (10-20); Calcium,Total 8.6 mg/dL (8.5-10.1); Chloride 106 mmol/L (98-107); Creatinine, Serum 1.14 mg/dL (0.70-1.30); EST Glomerular Filtration Rate 70 mL/min (>60); Est Glom Filt Rate - Afr Amer 84 mL/min (>60); Globulin 4.2 g/dL (2.2-4.2); Glucose 103 mg/dL (74-106); Potassium 5.2 mmol/L (3.5-5.1); Protein, Total 7.5 g/dL (6.4-8.2); Sodium Level 137 mmol/L (136-145)
== END ==
PROVIDERS: Family Provider Family Medicine; PCP Family Medicine
DX: M86.669 Other chronic osteomyelitis, unspecified tibia and fibula (principal)
CPT/HCPCS: 36415; 80053; 85025

== ENCOUNTER → 2020-01-13 11:53 | Outpatient (CLI) | payer OTHER, SELFPAY ==
[2017-07-07 23:11] VITALS: BMI 31.5
[2020-01-13 13:42] LABS: Erythrocyte Sedimentation Rate 18 mm/hr (0-20)
[2020-01-13 13:44] LABS: Absolute Lymphocyte Count 1.61 X10^3/uL (0.83-4.51); Absolute Neutrophil Count 6.7 X10^3/uL (2.0-7.7); Basophil# 0.06 X10^3/uL; Basophil% 0.6 % (0-1); Eosinophils% 9.5 % (0-5); Hematocrit 46.4 % (40-54); Hemoglobin 15.7 g/dL (13.0-16.5); Lymphocyte # 1.61 X10^3/ul (4.0); Lymphocyte % 15.3 % (19-41); Mean Corp Hgb Conc 33.8 g/dL (32-36); Mean Corpuscular Hgb 32.1 pg (27.0-32.0); Mean Corpuscular Volume 94.9 fL (80-94); Mean Platelet Vol. 8.9 fl (6.2-12.0); Monocyte# 1.09 X10^3/uL; Monocyte% 10.4 % (0-10); NRBC Flagged by Analyzer 0 % (0-5); Neutrophil % 63.8 % (47-70); Platelet Count 309 K/mm3 (150-450); RBC Distribution Width CV 12.5 % (11.6-14.6); RBC Distribution Width SD 44.1 fl (35.1-43.9); Red Blood Count 4.89 M/mm3 (4.6-6.2); White Blood Count 10.5 K/mm3 (4.4-11.0)
[2020-01-13 13:58] LABS: ALB/GLOB Ratio 0.8 RATIO (0.9-2.4); AST(SGOT) 32 U/L (15-37); Alanine Aminotransfer ALT/SGPT 28 U/L (16-61); Albumin, Serum 3.6 g/dL (3.2-5.0); Alkaline Phosphatase 101 U/L (45-117); Anion Gap 9 (5-15); BUN 12 mg/dL (7-18); BUN/Creat Ratio 12.6 RATIO (10-20); Calcium,Total 9.3 mg/dL (8.5-10.1); Chloride 98 mmol/L (98-107); Creatinine, Serum 0.95 mg/dL (0.70-1.30); EST Glomerular Filtration Rate 85 mL/min (>60); Est Glom Filt Rate - Afr Amer 103 mL/min (>60); Globulin 4.5 g/dL (2.2-4.2); Glucose 81 mg/dL (74-106); Potassium 4.6 mmol/L (3.5-5.1); Protein, Total 8.1 g/dL (6.4-8.2); Sodium Level 130 mmol/L (136-145)
== END ==
PROVIDERS: PCP Family Medicine
DX: T84.498A Other mechanical complication of other internal orthopedic devices, implants and grafts, initial encounter (principal)
CPT/HCPCS: 36415; 80053; 85025; 85652; 86140

== ENCOUNTER 2020-07-24 20:17 | Observation (INO) | payer OTHER, SELFPAY ==
[2020-07-24] VITALS (9 sets, daily range): BP systolic 123–171; BP diastolic 77–98; PULSE 80–92; RESP 16–18; TEMP 36.6–36.9; O2SAT 96–98; BMI 31.8; BMI 30.9; BMI 31.0
--- NOTE | 2020-07-24 20:42 | CT_ITS ---
STUDY: CT BRAIN WITHOUT CONTRAST REASON FOR EXAM: Male, 60 years old. Unresponsive episode RADIATION DOSAGE (If Supplied By Facility): CTDIvol = ( 44.99 ) mGy, DLP = ( 796.11 ) mGycm TECHNIQUE: Transaxial CT imaging of the brain was performed without administration of intravenous contrast material. Individualized dose optimization techniques were used for this CT. COMPARISON: No relevant priors. FINDINGS: Normal soft tissue structures. Normal calvarium. Normal size ventricles and extra-axial spaces for the patient''s age. Normal white matter tracts of the cerebral hemispheres. Normal basal ganglia and thalami. Normal brainstem. Normal cerebellum. There is no intracranial hemorrhage. There are no findings of an acute ischemic infarction. Normal visualized paranasal sinuses. CT/Brain/Head without Contrast IMPRESSION: Normal unenhanced CT scan of the brain. Electronically Signed: Chano Martinez DO at 22:18 EDT Tel , Service support ,
--- NOTE | 2020-07-24 20:43 | EKG12_ITS ---
Test Reason : SYNCOPE Blood Pressure : / mmHG Vent. Rate : 084 BPM Atrial Rate : 084 BPM P-R Int : 140 ms QRS Dur : 162 ms QT Int : 406 ms P-R-T Axes : 054 085 045 degrees QTc Int : 479 ms Normal sinus rhythm Right bundle branch block Abnormal ECG Confirmed by KHUSHI WALTON, BIRD ([id number]), newspaper photo editor MEMO LUND ([id number]) on 07/27/2020 9:44:50 AM Referred By: JOSEPH Confirmed By:BIRD PURI MD
[2020-07-24] MEDS: 0.9% Normal Saline 1,000 ML 1000 ML IV (21:01)
[2020-07-24 21:14] LABS: Absolute Neutrophil Count 4.4 X10^3/uL (2.0-7.7); Basophil# 0.04 X10^3/uL; Basophil% 0.6 % (0-1); Eosinophil# 0.18 X10^3/uL; Eosinophils% 2.7 % (0-5); Hemoglobin 14.9 g/dL (13.0-16.5); Lymphocyte % 17.7 % (19-41); Mean Corp Hgb Conc 34.7 g/dL (32-36); Mean Corpuscular Hgb 32.9 pg (27.0-32.0); Mean Corpuscular Volume 94.9 fL (80-94); Mean Platelet Vol. 8.2 fl (6.2-12.0); Monocyte# 0.94 X10^3/uL; Monocyte% 13.9 % (0-10); NRBC Flagged by Analyzer 0 % (0-5); Neutrophil # 4.37 X10^3/uL (2.7-7.7); Neutrophil % 64.4 % (47-70); Platelet Count 334 K/mm3 (150-450); RBC Distribution Width CV 11.9 % (11.6-14.6); RBC Distribution Width SD 41.7 fl (35.1-43.9); Red Blood Count 4.53 M/mm3 (4.6-6.2); White Blood Count 6.8 K/mm3 (4.4-11.0)
[2020-07-24 21:38] LABS: ALB/GLOB Ratio 0.8 RATIO (0.9-2.4); AST(SGOT) 23 U/L (15-37); Alanine Aminotransfer ALT/SGPT 29 U/L (16-61); Albumin, Serum 3.3 g/dL (3.2-5.0); Alkaline Phosphatase 86 U/L (45-117); Anion Gap 6 (5-15); BUN 11 mg/dL (7-18); BUN/Creat Ratio 11.4 RATIO (10-20); Calcium,Total 8.2 mg/dL (8.5-10.1); Chloride 91 mmol/L (98-107); Creatinine, Serum 0.96 mg/dL (0.70-1.30); EST Glomerular Filtration Rate 84 mL/min (>60); Est Glom Filt Rate - Afr Amer 101 mL/min (>60); Estimated Creatinine Clearance 95.36 ml/min; Globulin 3.9 g/dL (2.2-4.2); Glucose 84 mg/dL (74-106); Potassium 3.6 mmol/L (3.5-5.1); Protein, Total 7.2 g/dL (6.4-8.2); Sodium Level 128 mmol/L (136-145)
--- NOTE | 2020-07-24 21:53 | ED.VISSUMM ---
- ER Visit Summary Date of Service: 07/24/20 Chief Complaint: Syncope History of Present Illness: The patient is a [address] Ryan. Patient reports that he was sitting at the kitchen table after dinner and had no preceding symptoms. He denies chest pain, shortness of breath, palpitations, nausea, or abdominal pain. reports patient was unresponsive for 1 to 2 minutes. No seizure activity. He was incontinent of stool during this. Patient has never had anything like this before. Patient denies any chest pain or change in dyspnea exertion in the past month. And other than this episode of diarrhea while he was unconscious his review of systems is negative. Of note the patient reports that he was placed on a blood pressure medication 4 days ago which she believes is 20 mg of lisinopril. Physical Examination: Vitals: Stable. Afebrile. General: Well-nourished and well-developed. Head: Normocephalic atraumatic. Neck: Supple, no lymphadenopathy. No JVD. Nontender. Cardiovascular: Regular rate and rhythm. No murmurs. Respiratory: No respiratory distress. Clear to auscultation bilaterally. Abdominal: Soft, nontender, nondistended, normal bowel sounds. No guarding, rebound, or peritoneal signs. Back: Nontender. Extremities: Nontender, no edema. Skin: Normal color, no rash. Neurologic: Alert and oriented ?3. Cranial nerves II through XII are intact. Normal strength and sensation. Psych: Normal affect. Test Results: EKG is sinus at 84 with a right bundle branch block. There is no old EKG for comparison. Troponin is negative. LFTs are normal. Chem-7 shows a sodium 128, chloride 91, calcium 8.2. CBC shows monocytes 14 lymphocytes of 18. Clinical Impression(s) from Imaging Studies Brain CT 07/24/20 20:42 IMPRESSION: Normal unenhanced CT scan of the brain. Electronically Signed: Chano Martinez DO at 22:18 EDT Tel , Service support , Emergency Department Course and Treatment: Patient had negative orthostatic vital signs. He was given a liter of normal saline. He is resting comfortably. Treatment Plan: Patient had no preceding symptoms. He was sitting when this occurred. He was profoundly unresponsive to the point where he was incontinent of stool. Does make me concerned about the possibility of a cardiac dysrhythmia. He will be discussed with the hospitalist and admitted for further evaluation and treatment. Disposition: Admitted in stable condition. Impression: 1. Syncope. 2. Mild hyponatremia. This note was generated with [employer] software. It may contain incorrect words, spelling, and punctuation that were not noted in review of the chart prior to signing ED Disposition - Plan for ED Patient: Referrals: Ahsan Lama MD [Primary Care Provider] -
--- NOTE | 2020-07-24 22:55 | PCM.HP.STD ---
<Meme Juarez - Last Filed: 07/24/20 22:55> Problem List (1) Syncope and collapse Status: Acute (2) Acute hyponatremia Status: Acute (3) Hypertension Status: Chronic Qualifiers: Hypertension type: essential hypertension Qualified Code(s): I10 - Essential (primary) hypertension History of Present Illness Date of Admission: 07/24/20 Chief Complaint: Syncope with bowel incontinence The patient is a 60 year old M who was brought in today by EMS for episode of syncope at home. reports following syncopal episode patient lost control of his bowels. She reports patient was unresponsive for 1 to 2 minutes during which time he was breathing and had a heartbeat. denies seizure activity during this unresponsive. Patient was recently started on lisinopril/HCTZ combo for hypertension but does not follow with a physician normally, just started seeing his 's nurse practitioner for primary care. Patient denies symptoms at this time. Past Medical History Past Medical History (Chronic Problems): Chronic Problems Hypertension (Chronic) Allergies Sulfa (Sulfonamide Antibiotics) Allergy (Verified 07/07/17 16:46) Unknown Home Medications: Ambulatory Orders Medication Instructions Recorded Aspirin [Aspirin, Baby] 81 mg PO BIDCM #30 tab.chew 07/08/17 Lisinopril [Zestril] 20 mg PO DAILY 07/24/20 Penicillin Vk [Pen-Vee K , 500 mg PO DAILY 07/24/20 V-Cillin K] Surgical History: no surgical history Psychiatric History: No pertinent psych hx Lives: Spouse/ Significant Other Smoking Status: Former smoker Alcohol: None Drugs: None - *Family History Maternal History Items: High Cholesterol, Hypertension Paternal History Items: High Cholesterol, Hypertension Review of Systems Constitutional: Denies: Chills, Fever, Weight Change HEENT: Denies: Head Aches, Sinus Congestion, Sinus Drainage Cardiovascular: Reports: Syncope - 1 to 2-minute unresponsive per . Denies: Chest Pain, Palpitations Respiratory: Denies: Cough, Shortness of breath at rest, Sputum production Gastrointestinal: Denies: Abdominal Pain, Nausea, Vomiting Genitourinary: Denies: Dysuria Musculoskeletal: Denies: Joint Pain, Joint Tenderness Skin: Denies: Rash, Wounds Neurological: Denies: Focal weakness, Numbness, Tingling, Seizures Psychiatric: Denies: Anxiety, Depression, Homicidal Ideations, Suicidal Ideations Hematologic/ Lymphatic: Denies: Easy Bruising, Easy Bleeding VTE Information - Inpt Only VTE Present on Admission: No VTE Mechan Device Prophylaxis: SCD's, None VTE Pharm Prophylaxis ordered?: Yes Patient Problems: Active and Suspected Problems Syncope and collapse (Acute) Acute hyponatremia (Acute) - Physical Exam Vitals/I&O's: Vital Signs Temp Pulse Resp BP Pulse Ox 98.0 F 82 16 164/92 H 96 07/24/20 22:39 07/24/20 22:39 07/24/20 22:39 07/24/20 22:39 07/24/20 22:39 Oxygen Delivery Method Room Air Weight: 254 lb 13.67 oz Body Mass Index (BMI) 31.8 Intake and Output for Last 24 Hours 07/22/20 07/23/20 07/24/20 23:59 23:59 23:59 Intake Total 1000 / 1000 Balance 1000 / 1000 General: Alert, Oriented x3, Cooperative HEENT: Atraumatic, PERRLA, EOMI, Normocephalic Neck: Supple, No JVD, Negative Carotid Bruits Lungs: Clear to auscultation, Normal air movement Cardiovascular: Regular rate, Regular Rhythm, Normal S1, Normal S2, No murmurs Abdomen: Bowel Sounds Present, Soft, Non Tender Extremities: No edema, Capillary Refill Less than 3 Seconds, Peripheral Pulses Normal Skin: No rashes, No breakdown Musculoskeletal: No Tenderness to Palpation of Joints or Extremities Neurological: Cranial nerves II-XII grossly intact Psych/Mental Status: Normal Affect, Appropriate Laboratory Results 07/24/20 21:00: WBC 6.8, RBC 4.53 L, Hgb 14.9, Hct 43.0, MCV 94.9 H, MCH 32.9 H, MCHC 34.7, RDW Std Deviation 41.7, RDW Coeff of Hayden 11.9, Plt Count 334, MPV 8.2, Immature Gran % (Auto) 0.700, Neut % (Auto) 64.4, Lymph % (Auto) 17.7 L, [place] % (Auto) 13.9 H, Eos % (Auto) 2.7, Baso % (Auto) 0.6, Absolute Neuts (auto) 4.4, Absolute Lymphs (auto) 1.20, Nucleated RBC % 0 07/24/20 21:00: Sodium 128 L, Potassium 3.6, Chloride 91 L, Carbon Dioxide 31.0, Anion Gap 6, BUN 11, Creatinine 0.96, Estim Creat Clear Calc 95.36, Est GFR (MDRD) Af Amer 101, Est GFR (MDRD) Non-Af 84, BUN/Creatinine Ratio 11.4, Glucose 84, Calcium 8.2 L, Total Bilirubin 0.30, AST 23, ALT 29, Alkaline Phosphatase 86, Troponin I < 0.015, Total Protein 7.2, Albumin 3.3, Globulin 3.9, Albumin/Globulin Ratio 0.8 L Assessment/Plan All Active Problems Syncope and collapse (Acute) Acute hyponatremia (Acute) 1. Syncope and collapse -Will admit to PCU observation status with telemetry -Echocardiogram ordered for a.m. -Will trend troponins overnight -Orthostatic blood pressures negative -EEG ordered for a.m. due to loss of bowel control during episode 2. Hypertension -Patient unclear of lisinopril dose, will clarify with outpatient pharmacy in a.m. -Hydralazine 5 mg every 4 hours as needed ordered for systolic blood pressure greater than 170 3. Hyponatremia -Normal saline 100 mL/h ordered -CMP in morning. DVT prophylaxis-not indicated This patient was seen by MIGUEL A Savage under the supervision of Dr. Brian. <Thomas Brian - Last Filed: 07/25/20 00:04> History of Present Illness The patient is a 60 year old M [] Past Medical History Allergies Sulfa (Sulfonamide Antibiotics) Allergy (Verified 07/07/17 16:46) Unknown - Physical Exam Vitals/I&O's: Vital Signs Temp Pulse Resp BP Pulse Ox 97.8 F 83 16 154/87 H 96 07/24/20 23:42 07/24/20 23:46 07/24/20 23:42 07/24/20 23:46 07/24/20 23:42 Oxygen Delivery Method Room Air Weight: 112.4 kg Body Mass Index (BMI) 30.9 Orthostatic Vital Signs Start: 07/24/20 23:46 Freq: q24h Status: Active Protocol: Activity Type Activity Date Activity User E-Sign Co-Sign Detail Recorded Client Recorded Date Recorded By Document 07/24/20 23:46 [facility] [id number] 07/24/20 23:58 [facility] 07/24/20 23:46 Orthostatic Vitals Standing -Blood Pressure (90/60-120/80 mm Hg) 166/89 H -Extremity Use Left Arm -Pulse Rate (60-100 beats/min) 88 Sitting -Blood Pressure (90/60-120/80 mm Hg) 161/89 H -Extremity Use Left Arm -Pulse Rate (60-100 beats/min) 85 Lying -Blood Pressure (90/60-120/80 mm Hg) 154/87 H -Extremity Use Left Arm -Pulse Rate (60-100 beats/min) 83 Intake and Output for Last 24 Hours 07/23/20 07/24/20 07/25/20 23:59 23:59 23:59 Intake Total 1000 / 1000 Balance 1000 / 1000 Laboratory Results 07/24/20 21:00: WBC 6.8, RBC 4.53 L, Hgb 14.9, Hct 43.0, MCV 94.9 H, MCH 32.9 H, MCHC 34.7, RDW Std Deviation 41.7, RDW Coeff of [place]den 11.9, Plt Count 334, MPV 8.2, Immature Gran % (Auto) 0.700, Neut % (Auto) 64.4, Lymph % (Auto) 17.7 L, [place] % (Auto) 13.9 H, Eos % (Auto) 2.7, Baso % (Auto) 0.6, Absolute Neuts (auto) 4.4, Absolute Lymphs (auto) 1.20, Nucleated RBC % 0 07/24/20 21:00: Sodium 128 L, Potassium 3.6, Chloride 91 L, Carbon Dioxide 31.0, Anion Gap 6, BUN 11, Creatinine 0.96, Estim Creat Clear Calc 95.36, Est GFR (MDRD) Af Amer 101, Est GFR (MDRD) Non-Af 84, BUN/Creatinine Ratio 11.4, Glucose 84, Calcium 8.2 L, Total Bilirubin 0.30, AST 23, ALT 29, Alkaline Phosphatase 86, Troponin I < 0.015, Total Protein 7.2, Albumin 3.3, Globulin 3.9, Albumin/Globulin Ratio 0.8 L Current Medications Acetaminophen (Acetaminophen 325 Mg Tablet) 650 mg PO Q6H PRN PRN PRN Reason: Pain Score 1-10/Temp > 100.7 F Aspirin (Aspirin 81 Mg Tab.Chew) 81 mg PO BIDCM CARA Hydralazine HCl (Hydralazine 20 Mg/Ml Vial) 5 mg IV Q4H PRN PRN PRN Reason: SBP GREATER THAN 170 Sodium Chloride () 1,000 mls @ 100 mls/hr IV .Q10H [facility] Last Admin: 07/24/20 23:41 Dose: 100 mls/hr Documented by: Melatonin (Melatonin 3 Mg Tablet) 3 mg PO QHS PRN PRN PRN Reason: INSOMNIA Ondansetron HCl (Ondansetron 4 Mg/2 Ml Vial) 4 mg IV Q8H PRN PRN PRN Reason: NAUSEA/VOMITING Sodium Chloride (0.9% Saline Lock 10 Ml Syringe) 10 - 40 ml IV UD PRN PRN Reason: SALINE FLUSH Assessment/Plan The patient was seen and examined. I agree with assessment and plan by Meme Juarez, [employer] PLANT OPERATOR-C Reportedly patient has 2 episodes of syncope with some mild truncal jerking. The patient is alert oriented x3. Has an S1-S2 present Lung clear to auscultate Abdomen bowel sounds present, soft nontender nondistended Right leg edema (patient reports chronic) left leg without any edema. Syncope Etiology unclear at this time. Orthostatic vitals ordered EKG was personally reviewed. EKG showed right bundle branch block EEG ordered. Hyponatremia May department labs were reviewed. Labs remarkable for sodium of 128 and chloride 91 Trend BMP. Started on gentle normal saline IV hydration. We will check a.m. cortisol TSH Serum osmolality. Urine osmolality and urine sodium. OBSV E&M: [id number] Initial observation care L2
[2020-07-24] MEDS: 0.9% Saline Lock 10 ML Syringe IV (23:40)
[2020-07-24] MEDS: 0.9% Normal Saline 1,000 ML 100 ML IV (23:41)
[2020-07-25] VITALS (7 sets, daily range): BP systolic 147–157; BP diastolic 73–91; PULSE 77–92; RESP 15–16; TEMP 36.8–37.1; O2SAT 94–98
[2020-07-25 00:20] LABS: CPK Total, Creatine Kinase 115 U/L (39-308)
[2020-07-25 01:22] LABS: Urine Sodium 53 mmol/L (Not Establ.)
[2020-07-25 01:48] LABS: Osmolality, Urine 198 mOsm/KG
[2020-07-25 05:27] LABS: Absolute Lymphocyte Count 1.89 X10^3/uL (0.83-4.51); Absolute Neutrophil Count 3.5 X10^3/uL (2.0-7.7); Basophil# 0.05 X10^3/uL; Basophil% 0.7 % (0-1); Eosinophil# 0.36 X10^3/uL; Eosinophils% 5.2 % (0-5); Hematocrit 43.3 % (40-54); Lymphocyte # 1.89 X10^3/ul (4.0); Lymphocyte % 27.2 % (19-41); Mean Corp Hgb Conc 34.6 g/dL (32-36); Mean Corpuscular Hgb 33.3 pg (27.0-32.0); Mean Platelet Vol. 8.2 fl (6.2-12.0); Monocyte# 1.13 X10^3/uL; Monocyte% 16.3 % (0-10); NRBC Flagged by Analyzer 0 % (0-5); Neutrophil # 3.48 X10^3/uL (2.7-7.7); Platelet Count 349 K/mm3 (150-450); RBC Distribution Width SD 42.6 fl (35.1-43.9); Red Blood Count 4.51 M/mm3 (4.6-6.2)
[2020-07-25 05:33] LABS: Osmolality, Serum 279 mOsm/KG (280-301)
[2020-07-25 05:51] LABS: Anion Gap 6 (5-15); BUN 13 mg/dL (7-18); BUN/Creat Ratio 15.1 RATIO (10-20); Calcium,Total 8.4 mg/dL (8.5-10.1); Chloride 101 mmol/L (98-107); Creatinine, Serum 0.86 mg/dL (0.70-1.30); EST Glomerular Filtration Rate 95 mL/min (>60); Est Glom Filt Rate - Afr Amer 115 mL/min (>60); Estimated Creatinine Clearance 106.44 ml/min; Glucose 96 mg/dL (74-106); Potassium 4.3 mmol/L (3.5-5.1); Sodium Level 133 mmol/L (136-145); Thyroid Stim Hormone (TSH) 2.01 uIU/mL (0.358-3.74)
--- NOTE | 2020-07-25 05:55 | ECHOD_ITS ---
Reason For Study: Syncope Procedure This was a 2D Doppler, Color Flow transthoracic echocardiogram. The study was technically difficult. Exam performed portable in patient room. Left Ventricle Normal LV size. Left ventricular systolic function is normal. The estimated ejection fraction is 55 %. Septal bounce. No evidence for diastolic dysfunction. No regional wall motion abnormalities noted. Right Ventricle Normal RV size. Normal systolic function. Atria Normal left atrium. Normal right atrium. No doppler evidence for ASD. Mitral Valve There is no mitral annular calcification. Normal mitral valve. Trivial mitral valve insufficiency. Tricuspid Valve Normal tricuspid valve. Trivial tricuspid valve insufficiency. Right ventricular systolic pressure estimated to be 28 mmHg. Aortic Valve Trisinus/trileaflet aortic valve. Normal aortic valve. Pulmonic Valve The pulmonic valve is not well visualized. Mild (1+) pulmonic valve insufficiency. Great Vessels Normal sized aortic root. Pericardium/Pleural No pericardial effusion. MMode/2D Measurements & Calculations LVIDd: 4.7 cm IVSd: 1.1 cm Ao root diam: 3.6 cm LVIDs: 3.2 cm LVPWd: 1.1 cm RVDd: 3.5 cm FS: 32.8 % LAV(MOD-bp): 47.9 ml EDV(MOD-sp4): 105.4 ml EDV(MOD-sp2): 124.4 ml LAV(MOD-bp) Indexed: 20.0 ml/m2 ESV(MOD-sp4): 44.1 ml EF(MOD-sp2): 53.0 % LAV(MOD-sp2): 48.2 ml EF(MOD-sp4): 58.2 % LAV(MOD-sp4): 48.7 ml SV(MOD-sp4): 61.3 ml SV(MOD-sp2): 65.9 ml LA A4 area: 17.9 cm2 LA dimension(2D): 4.5 cm RA A4 area: 12.8 cm2 Doppler Measurements & Calculations MV E max jose j: 53.3 cm/sec Lat Peak E' Jose J: 12.7 cm/sec Med Peak E' Jose J: 8.3 cm/sec MV A max jose j: 84.2 cm/sec E/E' lat: 4.2 E/E' med: 6.4 MV E/A: 0.63 Ao V2 max: 144.2 cm/sec LV V1 max: 109.8 cm/sec PA V2 max: 132.5 cm/sec Ao max P.3 mmHg LV V1 max P.8 mmHg TR max jose j: 251.2 cm/sec TR max P.3 mmHg ECHO/Echo Complete Interpretation Summary The study was technically difficult. Left ventricular systolic function is normal. The estimated ejection fraction is 55 %. Septal bounce. Trivial mitral valve insufficiency. Trivial tricuspid valve insufficiency. Mild (1+) pulmonic valve insufficiency. Right ventricular systolic pressure estimated to be 28 mmHg. No evidence for diastolic dysfunction. Ordering Physician: Meme Juarez Referring Physician: Ahsan Lama Performed By: Kimberly Rivero RDCS
--- NOTE | 2020-07-25 09:24 | TELEMED_ITS ---
[facility] has confirmed receipt of a request for visit. This document confirms receipt of the order initiating the consult. To find the results of the consultation, please view the patient's reports for the scanned Telemed Consult.
[2020-07-25] MEDS: Aspirin 81 MG TAB.CHEW PO (11:01)
--- NOTE | 2020-07-25 11:52 | PCM.DC ---
- Discharge Diagnoses Current Active Problems: Current Active and Chronic Problems Syncope and collapse (Acute) Hypertension (Chronic) Acute hyponatremia (Acute) You will use the following diet at home:: Cardiac Discharge Activity: Return to Normal Activity Call your doctor if you observe: Shortness of breath, Dizziness, Fainting spells, Chest pain Allergies/Adverse Reactions: Allergies Sulfa (Sulfonamide Antibiotics) Allergy (Verified 07/07/17 16:46) Unknown Medications to take at Discharge Penicillin Vk [Pen-Vee K 250MG] 500 mg PO DAILY 07/24/20 Aspirin [Aspirin, Baby] 81 mg PO DAILY@0800 07/25/20 Lisinopril/Hydrochlorothiazide [Lisinopril-Hctz 10-12.5 mg Tab] 1 each PO DAILY #30 tablet 07/25/20 The following prescriptions were given: Lisinopril/Hydrochlorothiazide [Lisinopril-Hctz 10-12.5 mg Tab] 1 each PO DAILY #30 tablet Transmission Status: Pending to [facility]/pharmacy #[id number] Primary Care Physician: Ahsan Lama MD [Primary Care Provider] - Please follow up with your Primary Care Physician in: 1 Week Test Results: Test results from this visit will be discussed in further detail at your follow-up appointment, if applicable. Proposed Discharge Date: 07/25/20
--- NOTE | 2020-07-25 12:47 | DS.PCM_ITS ---
<Luz Maya RECREATION AIDE - Last Filed: 07/25/20 12:51> Discharge Date and Diagnosis - Problem List Patient Problems: Active and Suspected Problems Syncope and collapse (Acute) Acute hyponatremia (Acute) Date of Admission: 07/24/20 Date of Discharge: 07/25/20 - Primary Discharge Diagnosis Acute Problems: Active Problems 1. Syncope 2. Hypertension 3. Hyponatremia - Secondary Discharge Diagnosis Chronic Problems: Chronic Problems Hypertension (Chronic) Hospital Course and Treatment Imaging Results: Diagnostic Data Brain CT 07/24/20 20:42 IMPRESSION: Normal unenhanced CT scan of the brain. Electronically Signed: Chano Martinez DO at 22:18 EDT Tel , Service support , Echocardiogram 07/25/20 05:55 Interpretation Summary The study was technically difficult. Left ventricular systolic function is normal. The estimated ejection fraction is 55 %. Septal bounce. Trivial mitral valve insufficiency. Trivial tricuspid valve insufficiency. Mild (1+) pulmonic valve insufficiency. Right ventricular systolic pressure estimated to be 28 mmHg. No evidence for diastolic dysfunction. Ordering Physician: Meme Juarez Referring Physician: Ahsan Lama Performed By: Kimberly Rivero RDCS Operations: None Procedures: 2-D Echocardiogram Summary of Care Provided: The patient is a 60 year old M admitted 07/24/2020 due to syncope. 1. Syncope-suspect vasovagal. Work-up unremarkable. Troponin negative. EKG without ST-T changes. Orthostatic vitals negative. EEG unremarkable. Echocardiogram demonstrates an EF of 55%, mild pulmonic valve insufficiency, RVSP estimated to be 28 mmHg. 2. Hypertension-recently initiated on lisinopril HCTZ combo. Reduce dose to lisinopril 10/HCTZ 12.5. 3. Hyponatremia-suspect secondary to recent HCTZ initiation. Improved. Patient seen and examined prior to discharge. Physical assessment as noted below. Patient is stable for discharge with follow up recommendations as noted above. This patient was seen by MIGUEL A Fu under the supervision of Dr. Spain. Patient Problems: Active and Suspected Problems Syncope and collapse (Acute) Acute hyponatremia (Acute) - Physical Exam Vitals/I&O's: Vital Signs Temp Pulse Resp BP Pulse Ox 98.2 F 82 16 149/85 H 96 07/25/20 07:59 07/25/20 11:29 07/25/20 07:59 07/25/20 07:59 07/25/20 07:59 Oxygen Delivery Method Room Air Weight: 247 lb 12.793 oz Body Mass Index (BMI) 30.9 Orthostatic Vital Signs Start: 07/24/20 23:46 Freq: q24h Status: Active Protocol: Activity Type Activity Date Activity User E-Sign Co-Sign Detail Recorded Client Recorded Date Recorded By Document 07/25/20 05:40 [facility] [place] [id number] 07/25/20 05:44 MNC 07/25/20 05:40 Orthostatic Vitals Standing -Blood Pressure (90/60-120/80) 147/88 H -Extremity Use Left Arm -Pulse Rate (60-100) 90 Sitting -Blood Pressure (90/60-120/80) 157/91 H -Extremity Use Left Arm -Pulse Rate (60-100) 86 Lying -Blood Pressure (90/60-120/80) 156/73 H -Extremity Use Left Arm -Pulse Rate (60-100) 89 Intake and Output for Last 24 Hours 07/23/20 07/24/20 07/25/20 23:59 23:59 23:59 Intake Total 1000 / 1000 2260 / 2260 Output Total 600 / 600 Balance 1000 / 1000 1660 / 1660 General: Alert, Oriented x3, Cooperative HEENT: Atraumatic, PERRLA, EOMI, Normocephalic Neck: Supple, No JVD, Negative Carotid Bruits Lungs: Clear to auscultation, Normal air movement Cardiovascular: Regular rate, No murmurs Abdomen: Bowel Sounds Present, Soft, Non Tender, Non-Distended Extremities: No clubbing, No cyanosis, No edema, Capillary Refill Less than 3 Seconds Skin: No rashes, No breakdown Musculoskeletal: No Tenderness to Palpation of Joints or Extremities Neurological: Cranial nerves II-XII grossly intact, Neuro grossly intact Psych/Mental Status: Normal Affect, Appropriate Laboratory Results 07/24/20 21:00: WBC 6.8, RBC 4.53 L, Hgb 14.9, Hct 43.0, MCV 94.9 H, MCH 32.9 H, MCHC 34.7, RDW Std Deviation 41.7, RDW Coeff of [place] 11.9, Plt Count 334, MPV 8.2, Immature Gran % (Auto) 0.700, Neut % (Auto) 64.4, Lymph % (Auto) 17.7 L, [place] % (Auto) 13.9 H, Eos % (Auto) 2.7, Baso % (Auto) 0.6, Absolute Neuts (auto) 4.4, Absolute Lymphs (auto) 1.20, Nucleated RBC % 0 07/24/20 21:00: Sodium 128 L, Potassium 3.6, Chloride 91 L, Carbon Dioxide 31.0, Anion Gap 6, BUN 11, Creatinine 0.96, Estim Creat Clear Calc 95.36, Est GFR (MDRD) Af Amer 101, Est GFR (MDRD) Non-Af 84, BUN/Creatinine Ratio 11.4, Glucose 84, Calcium 8.2 L, Total Bilirubin 0.30, AST 23, ALT 29, Alkaline Phosphatase 86, Troponin I < 0.015, Total Protein 7.2, Albumin 3.3, Globulin 3.9, Albumin/Globulin Ratio 0.8 L 07/24/20 21:00: Total Creatine Kinase 115, Prolactin 21.0 07/25/20 00:45: Urine Osmolality 198, Ur Random Sodium 53 07/25/20 05:00: WBC 7.0, RBC 4.51 L, Hgb 15.0, Hct 43.3, MCV 96.0 H, MCH 33.3 H, MCHC 34.6, RDW Std Deviation 42.6, RDW Coeff of [place]den 12.0, Plt Count 349, MPV 8.2, Immature Gran % (Auto) 0.600, Neut % (Auto) 50.0, Lymph % (Auto) 27.2, [place] % (Auto) 16.3 H, Eos % (Auto) 5.2 H, Baso % (Auto) 0.7, Absolute Neuts (auto) 3.5, Absolute Lymphs (auto) 1.89, Nucleated RBC % 0 07/25/20 05:00: Sodium 133 L, Potassium 4.3, Chloride 101, Carbon Dioxide 26.0, Anion Gap 6, BUN 13, Creatinine 0.86, Estim Creat Clear Calc 106.44, Est GFR (MDRD) Af Amer 115, Est GFR (MDRD) Non-Af 95, BUN/Creatinine Ratio 15.1, Glucose 96, Calcium 8.4 L, TSH 2.01 07/25/20 05:00: Serum Osmolality 279 L 07/25/20 05:00: Cortisol 7.60 Current Medications Acetaminophen (Acetaminophen 325 Mg Tablet) 650 mg PO Q6H PRN PRN PRN Reason: Pain Score 1-10/Temp > 100.7 F Aspirin (Aspirin 81 Mg Tab.Chew) 81 mg PO BIDCM [facility] Last Admin: 07/25/20 11:01 Dose: 81 mg Documented by: Hydralazine HCl (Hydralazine 20 Mg/Ml Vial) 5 mg IV Q4H PRN PRN PRN Reason: SBP GREATER THAN 170 Melatonin (Melatonin 3 Mg Tablet) 3 mg PO QHS PRN PRN PRN Reason: INSOMNIA Ondansetron HCl (Ondansetron 4 Mg/2 Ml Vial) 4 mg IV Q8H PRN PRN PRN Reason: NAUSEA/VOMITING Sodium Chloride (0.9% Saline Lock 10 Ml Syringe) 10 - 40 ml IV UD PRN PRN Reason: SALINE FLUSH Last Admin: 07/24/20 23:40 Dose: 10 ml Documented by: Discharge Diet: Low fat/ Low Cholesterol Discharge Activity: Return to Normal Activity Call your doctor if you observe: Shortness of breath, Dizziness, Fainting spells, Chest pain Home Medications: Medications to take at Discharge Penicillin Vk [Pen-Vee K 250MG] 500 mg PO DAILY 07/24/20 Aspirin [Aspirin, Baby] 81 mg PO DAILY@0800 07/25/20 Lisinopril/Hydrochlorothiazide [Lisinopril-Hctz 10-12.5 mg Tab] 1 each PO DAILY #30 tablet 07/25/20 Following Prescriptions Were Given to Patient: Lisinopril/Hydrochlorothiazide [Lisinopril-Hctz 10-12.5 mg Tab] 1 each PO DAILY #30 tablet Transmission Status: Received by [facility]acy [facility][id number] Other Amb Orders: Cardiac Holter Monitor, Set-Up [[facility]] Location: None Selected Primary Care Physician: Ahsan Lama MD [Primary Care Provider] - Please follow up with your Primary Care Physician in: 1 Week Disposition: Home Minutes spent on discharge:: 35 Patient Condition:: Stable Medical Necessity - Tobacco Use Smoking Status: Former smoker Meaningful Use Info Meaningful Use Diagnoses (Choose all that apply): None applicable <Lobito Spain - Last Filed: 07/25/20 13:14> Discharge Date and Diagnosis - Primary Discharge Diagnosis Acute Problems: Active Problems Syncope and collapse (Acute) Acute hyponatremia (Acute) - Secondary Discharge Diagnosis Chronic Problems: Chronic Problems Hypertension (Chronic) Hospital Course and Treatment Imaging Results: 07/25/20 05:55 Echo Complete [ECHO] AM (NON MEDS) Summary of Care Provided: The patient is a 60 year old M [] - Physical Exam Vitals/I&O's: Vital Signs Temp Pulse Resp BP Pulse Ox 98.2 F 82 16 149/85 H 96 07/25/20 07:59 07/25/20 11:29 07/25/20 07:59 07/25/20 07:59 07/25/20 07:59 Oxygen Delivery Method Room Air Weight: 247 lb 12.793 oz Body Mass Index (BMI) 30.9 Orthostatic Vital Signs Start: 07/24/20 23:46 Freq: q24h Status: Active Protocol: Activity Type Activity Date Activity User E-Sign Co-Sign Detail Recorded Client Recorded Date Recorded By Document 07/25/20 05:40 [facility] [place] [id number] 07/25/20 05:44 [place] 07/25/20 05:40 Orthostatic Vitals Standing -Blood Pressure (90/60-120/80) 147/88 H -Extremity Use Left Arm -Pulse Rate (60-100) 90 Sitting -Blood Pressure (90/60-120/80) 157/91 H -Extremity Use Left Arm -Pulse Rate (60-100) 86 Lying -Blood Pressure (90/60-120/80) 156/73 H -Extremity Use Left Arm -Pulse Rate (60-100) 89 Intake and Output for Last 24 Hours 07/23/20 07/24/20 07/25/20 23:59 23:59 23:59 Intake Total 1000 / 1000 2260 / 2260 Output Total 600 / 600 Balance 1000 / 1000 1660 / 1660 Laboratory Results 07/24/20 21:00: WBC 6.8, RBC 4.53 L, Hgb 14.9, Hct 43.0, MCV 94.9 H, MCH 32.9 H, MCHC 34.7, RDW Std Deviation 41.7, RDW Coeff of Hayden 11.9, Plt Count 334, MPV 8.2, Immature Gran % (Auto) 0.700, Neut % (Auto) 64.4, Lymph % (Auto) 17.7 L, [place] % (Auto) 13.9 H, Eos % (Auto) 2.7, Baso % (Auto) 0.6, Absolute Neuts (auto) 4.4, Absolute Lymphs (auto) 1.20, Nucleated RBC % 0 07/24/20 21:00: Sodium 128 L, Potassium 3.6, Chloride 91 L, Carbon Dioxide 31.0, Anion Gap 6, BUN 11, Creatinine 0.96, Estim Creat Clear Calc 95.36, Est GFR (MDRD) Af Amer 101, Est GFR (MDRD) Non-Af 84, BUN/Creatinine Ratio 11.4, Glucose 84, Calcium 8.2 L, Total Bilirubin 0.30, AST 23, ALT 29, Alkaline Phosphatase 86, Troponin I < 0.015, Total Protein 7.2, Albumin 3.3, Globulin 3.9, Albumin/Globulin Ratio 0.8 L 07/24/20 21:00: Total Creatine Kinase 115, Prolactin 21.0 07/25/20 00:45: Urine Osmolality 198, Ur Random Sodium 53 07/25/20 05:00: WBC 7.0, RBC 4.51 L, Hgb 15.0, Hct 43.3, MCV 96.0 H, MCH 33.3 H, MCHC 34.6, RDW Std Deviation 42.6, RDW Coeff of Hayden 12.0, Plt Count 349, MPV 8.2, Immature Gran % (Auto) 0.600, Neut % (Auto) 50.0, Lymph % (Auto) 27.2, [place] % (Auto) 16.3 H, Eos % (Auto) 5.2 H, Baso % (Auto) 0.7, Absolute Neuts (auto) 3.5, Absolute Lymphs (auto) 1.89, Nucleated RBC % 0 07/25/20 05:00: Sodium 133 L, Potassium 4.3, Chloride 101, Carbon Dioxide 26.0, Anion Gap 6, BUN 13, Creatinine 0.86, Estim Creat Clear Calc 106.44, Est GFR (MDRD) Af Amer 115, Est GFR (MDRD) Non-Af 95, BUN/Creatinine Ratio 15.1, Glucose 96, Calcium 8.4 L, TSH 2.01 07/25/20 05:00: Serum Osmolality 279 L 07/25/20 05:00: Cortisol 7.60 Current Medications Acetaminophen (Acetaminophen 325 Mg Tablet) 650 mg PO Q6H PRN PRN PRN Reason: Pain Score 1-10/Temp > 100.7 F Aspirin (Aspirin 81 Mg Tab.Chew) 81 mg PO BIDCM [facility] Last Admin: 07/25/20 11:01 Dose: 81 mg Documented by: Hydralazine HCl (Hydralazine 20 Mg/Ml Vial) 5 mg IV Q4H PRN PRN PRN Reason: SBP GREATER THAN 170 Melatonin (Melatonin 3 Mg Tablet) 3 mg PO QHS PRN PRN PRN Reason: INSOMNIA Ondansetron HCl (Ondansetron 4 Mg/2 Ml Vial) 4 mg IV Q8H PRN PRN PRN Reason: NAUSEA/VOMITING Sodium Chloride (0.9% Saline Lock 10 Ml Syringe) 10 - 40 ml IV UD PRN PRN Reason: SALINE FLUSH Last Admin: 07/24/20 23:40 Dose: 10 ml Documented by: Addendum: Dr. Spain I personally examined the patient and reviewed the chart. I agree with the above. 60-year-old male presented from home with syncope. His episode was witnessed by his who did not notice any seizure-like activity though he did have a small bowel movement during the episode. He states that he was maybe unconscious for about a minute and then felt back to normal when he recovered. He was brought in by his but he did not want to come in initially. Echo was unremarkable and EEG was normal. He denies any signs of palpitations prior to the event or lightheadedness. His orthostatic vital signs here were normal and he says that he has been trying to increase his water intake but he has not been doing that very well. He was also started on a new blood pressure medication this last week, lisinopril 20 mg daily therefore will cut this in half and have him follow-up with his PCP in 3 to 5 days. Telemetry was unremarkable however was sent home with 48-hour event monitor as well. Discussed with him the plan for discharge today he expressed understanding of the risk and benefits of going home and wants to go home today. He does understand that if felt like this happens again or he feels lightheaded and dizzy that he should come back to the hospital. OBSV E&M: [id number] Observation care discharge
--- NOTE | 2020-07-25 13:58 | PHA.DC.MR ---
Pharmacy Service has performed discharge medication reconciliation for this patient. The patient's discharge medication list was reviewed for discrepancies and discrepancies were resolved. Home Medications Penicillin Vk [Pen-Vee K 250MG] 500 mg PO DAILY 07/24/20 Aspirin [Aspirin, Baby] 81 mg PO DAILY@0800 07/25/20 Lisinopril/Hydrochlorothiazide [Lisinopril-Hctz 10-12.5 mg Tab] 1 each PO DAILY #30 tablet 07/25/20
== END 2020-07-25 11:52 | disposition home or self-care (01) ==
LOC: ED 20:57 → PCU 22:46
PROVIDERS: Nurse Practitioner Family; Admitting Provider Hospitalist; Emergency Provider Emergency Medicine; PCP Family Medicine; Visit Provider Family Medicine
DX: R55 Syncope and collapse (principal); R15.9 Full incontinence of feces; Z79.899 Other long term (current) drug therapy; Z79.82 Long term (current) use of aspirin; I45.10 Unspecified right bundle-branch block; E87.1 Hypo-osmolality and hyponatremia; I10 Essential (primary) hypertension; Z87.891 Personal history of nicotine dependence; I34.0 Nonrheumatic mitral (valve) insufficiency
CPT/HCPCS: 70450; 80048; 80053; 82533; 82550; 83930; 83935; 84146; 84300; 84443; 84484; 85025; 93005; 93306; 95819; 96360; 96361; 99218; 99285; J7030; Q9957; A4216; G0378

== ENCOUNTER → 2020-07-25 12:58 | Outpatient (CLI) | payer OTHER, SELFPAY ==
[2020-07-24 23:20] VITALS: BMI 30.9
== END ==
PROVIDERS: PCP Family Medicine; Visit Provider Nurse Practitioner Family
DX: R00.0 Tachycardia, unspecified (principal)
CPT/HCPCS: 93225; 93226

== ENCOUNTER → 2020-08-15 | Outpatient (CLI) | payer OTHER, SELFPAY ==
[2020-07-24 23:20] VITALS: BMI 30.9
--- NOTE | 2020-08-15 | IMM_PTH ---
PATIENT: BRANDY MATHIAS LOC: [facility] U#:[id number] AGE/SX: 60/M ROOM: RE08/15/[address]: Dr. Jonny Ramirez MD : 1960 BED: DIS: 08/15/2020 SPEC #: [id number] RECD: 08/17/20 14:26 STATUS: [facility] REVeronica #: [id number] JOANNE: 08/15/20 00:[address]: Jonny Ramirez DEPT: IMMUNOHISTOCHEMISTRY RECD BY: Terri Awan Tissues: F - PROSTATE LEFT Procedures: P40 (add) 34BE12 (initial) PHYSICIAN & INSTITUTION [place] [id number] SPECIMEN INFORMATION: Tissue Source: F - Left prostate, base, core biopsy Clinical Info: Elevated PSA Specimen Number: [id number] CPT code: 97236, 58037 METHODOLOGY: Deparaffinized sections of prefer/formalin-fixed tissue or PAP/DQ stained slides are incubated with monoclonal/polyclonal antibodies/oligonucleotide probes. Localization is made via biotin free immunoperoxidase method. Appropriate controls are performed and reacted as expected. Results on target cell population are indicated in the following table: RESULTS: ANTIBODY / CLONE RESULT Block F P40 (BC28) positive 34BE12 (34BE12) positive These tests were developed and their performance characteristics determined by [facility]. They may not have been cleared or approved by the U.S. Food and Drug Administration. The FDA has determined that such clearance or approval is not necessary. The above immunohistochemical/dualISH markers are ordered and reviewed by the Pathologist. INTERPRETATION: FKhadijah Left prostate, base, core biopsy: Benign prostatic tissue. AM:vineet 08/18/2020
--- NOTE | 2020-08-15 14:30 | PROSBIL_PTH ---
PATIENT: BRANDY MATHIAS LOC: [facility] U#:[id number] AGE/SX: 60/M ROOM: RE08/15/[address]: Dr. Jonny Ramirez MD : 1960 BED: DIS: 08/15/2020 SPEC #: [id number] RECD: 08/15/20 15:43 STATUS: [facility] REVeronica #: [id number] JOANNE: 08/15/20 14:[address]: Jonny Ramirez DEPT: SURGICAL PATHOLOGY RECD BY: Salud Carvajal Tissues: A - PROSTATE RIGHT B - PROSTATE RIGHT C - PROSTATE RIGHT D - PROSTATE LEFT E - PROSTATE LEFT F - PROSTATE LEFT Procedures: PROSTATE BX HEADER OPERATION: Prostate biopsy PRE-OP DIAGNOSIS: Elevated PSA TISSUE SUBMITTED: A - Right apex, B - Right mid, C - Right base, D - Left apex, E - Left mid, F - Left base MICROSCOPIC DIAGNOSIS A. Right prostate, apex, core biopsy: Benign prostatic tissue. B. Right prostate, mid, core biopsy: Focal glandular atrophy. Mild chronic inflammation. C. Right prostate, base, core biopsy: Benign prostatic tissue. D. Left prostate, apex, core biopsy: Focal glandular atrophy. Mild chronic inflammation and focal acute inflammation. E. Left prostate, mid, core biopsy: Mild chronic inflammation. F. Left prostate, base, core biopsy: Focal glandular atrophy. Mild chronic inflammation. See comment. AM:vineet 08/17/2020 COMMENT F. Immunohistochemistry ([id number]) supports the above diagnosis. MICROSCOPIC DESCRIPTION Slides are reviewed. GROSS DESCRIPTION A - Received is one container designated prostate, right apex. The specimen consists of two elongated fragments of light arredondo-white soft tissue each measuring 1 cm in length and 0.1 cm in diameter. The specimen is totally submitted in one cassette. B - Received is one container designated prostate, right mid. The specimen consists of two elongated fragments of light arredondo-white soft tissue each measuring 1 cm in length and 0.1 cm in diameter. The specimen is totally submitted in one cassette. C - Received is one container designated prostate, right base. The specimen consists of two elongated fragments of light arredondo-white soft tissue each measuring 1 cm in length and 0.1 cm in diameter. The specimen is totally submitted in one cassette. D - Received is one container designated prostate, left apex. The specimen consists of two elongated fragments of light arredondo-white soft tissue each measuring 1 cm in length and 0.1 cm in diameter. The specimen is totally submitted in one cassette. E - Received is one container designated prostate, left mid. The specimen consists of two elongated fragments of light arredondo-white soft tissue each measuring 1.5 cm in length and 0.1 cm in diameter. The specimen is totally submitted in one cassette. F - Received is one container designated prostate, left base. The specimen consists of two elongated fragments of light arredondo-white soft tissue each measuring 1.5 cm in length and 0.1 cm in diameter. The specimen is totally submitted in one cassette. / AM:vineet 08/16/20 TC:2 CPT: 77591 x6
== END | disposition home or self-care (01) ==
LOC: LABSPEC 15:49
PROVIDERS: Referring Provider Urology; Visit Provider Urology
DX: R97.20 Elevated prostate specific antigen [PSA] (principal)
CPT/HCPCS: 88305; 88341; 88342; G0416

== ENCOUNTER → 2021-01-23 12:50 | Outpatient (CLI) | payer OTHER, SELFPAY | PROVIDERS: PCP Nurse Practitioner Primary Care; Referring Provider Urology; Visit Provider Urology | DX: R97.20 Elevated prostate specific antigen [PSA] (principal) | CPT/HCPCS: 36415; 84153 ==

== ENCOUNTER → 2021-02-20 06:38 | Outpatient (CLI) | payer OTHER, SELFPAY ==
--- NOTE | 2021-02-20 06:42 | MRI_ITS ---
STUDY: MR PELVIS WITH AND WITHOUT CONTRAST (PROSTATE) REASON FOR EXAM: Male, 60 years old. Elevated PSA TECHNIQUE: Standardized multiparametric prostate MRI with T1, T2, DWI/ADC sequences were obtained in 3 orthogonal planes, and dynamic contrast enhancement sequences. 22 ml of Dotarem contrast material was administered intravenously for the contrast portion of the examination. COMPARISON: None. FINDINGS: The prostate volume measures 47 mm3. The contours of the prostate gland are smooth. There is not mass effect on the bladder base. The transition zone is heterogenous. PI-RADS DWI score 4 - Focal markedly hypointense on ADC and markedly hyperintense on high b-value DWI; < 1.5 cm on axial. PI-RADS T2W score 4 - Non-circumscribed, homogeneous, moderately hypointense, and measures 1.3 x 1.4 cm (image 15 series 5) in the left posterior mid transitional zone. Contrast enhancement (+) Focal, earlier or contemporaneous with enhancement of adjacent normal prostatic tissues, and corresponding to a suspicious finding on T2WI and/or DWI. The peripheral zone is homogenous. PI-RADS DWI score 1 - No abnormality (normal) on ADC or high b-value DWI. PI-RADS T2W score 1 - Uniformaly hyperintense (normal). Contrast enhancement no early or contemporaneous enhancement; or diffuse multifocal enhancement NOT corresponding to a focal finding on T2W and/or DWI or focal enhancement responding to a lesion demonstrating features of BPH onT2WI (including features of extruded BPH in the PZ). The seminal vesicles demonstrate normal margins and T2 signal pattern. No mass lesion or invasion depicted. The rectoprostatic angles are normal. Urinary bladder is normal without wall thickening. The vascular structures of the are normal. The visualized hollow viscus structures are normal. No bone marrow edema or mass lesion depicted. Enlargement of bilateral inguinal lymph nodes, right more than left, with restricted diffusion and contrast enhancement. The largest lymph node on the right measures 1.3 x 2.0 cm (image 35 series 12). MRI/Pelvis W/WO Contrast IMPRESSION: 1. PIRADS v2.1 2019 -- 4 - High (clinically significant cancer is likely). 2. Mild bilateral inguinal adenopathy, right more than left. Electronically Signed: Eduard Marcano MD ([place]oks) at 11:15 EDT , Service support ,
[2021-02-20 07:00] LABS: CREATININE FINGERSTICK 0.8 mg/dL (0.70-1.30); EGFR FINGERSTICK > 60.0000 mL/min (>60)
== END ==
PROVIDERS: PCP Nurse Practitioner Primary Care; Referring Provider Urology; Visit Provider Urology
DX: R97.20 Elevated prostate specific antigen [PSA] (principal)
CPT/HCPCS: 72197; A9575

== ENCOUNTER → 2021-03-19 | Outpatient (CLI) | payer OTHER, SELFPAY ==
--- NOTE | 2021-03-19 | PROSBIL_PTH ---
PATIENT: BRANDY MATHIAS LOC: [facility] U#:[id number] AGE/SX: 60/M ROOM: RE03/19/[address]: Dr. Jonny Ramirez MD : 1960 BED: DIS: 03/19/2021 SPEC #: [id number] RECD: 03/19/21 16:22 STATUS: [facility] [place] #: [id number] JOANNE: 03/19/21 00:[address]: Jonny Ramirez DEPT: SURGICAL PATHOLOGY RECD BY: Edwin Leyva ENTERED: 03/20/21 09:19 SP TYPE: PROST BX NICK DR: Luz Ryan, PERSONAL FITNESS MANAGER-C Tissues: A - PROSTATE LEFT B - PROSTATE LEFT C - PROSTATE LEFT D - PROSTATE LEFT E - PROSTATE LEFT Procedures: PROSTATE BX HEADER OPERATION: Prostate biopsy PRE-OP DIAGNOSIS: R97.20 TISSUE SUBMITTED: A ? Left transition zone, B - Left transition zone, C - Left transition zone, D - Left transition zone, E - Left transition zone MICROSCOPIC DIAGNOSIS A. Prostate, left transition zone, biopsy: Mild chronic inflammation and focal glandular atrophy B. Prostate, left transition zone, biopsy: Mild chronic inflammation and focal glandular atrophy C. Prostate, left transition zone, biopsy: Mild chronic inflammation and focal glandular atrophy D. Prostate, left transition zone, biopsy: Mild chronic inflammation and focal glandular atrophy E. Prostate, left transition zone, biopsy: Benign prostatic tissue AM:brinda 03/21/21 MICROSCOPIC DESCRIPTION Slides are reviewed. GROSS DESCRIPTION A - Received is one container designated left transition zone. The specimen consists of one elongated fragment of light arredondo-white soft tissue measuring 1.5 cm in length and 0.1 cm in diameter. The specimen is totally submitted in one cassette. B - Received is one container designated left transition zone. The specimen consists of two elongated fragments of light arredondo-white soft tissue measuring 0.5 and 1 cm in length and 0.1 cm in diameter. The specimen is totally submitted in one cassette. C - Received is one container designated left transition zone. The specimen consists of two elongated fragments of light arredondo-white soft tissue measuring 0.5 x 1.5 cm in length and 0.1 cm in diameter. The specimen is totally submitted in one cassette. D - Received is one container designated left transition zone. The specimen consists of one elongated fragment of light arredondo-white soft tissue measuring 1.5 cm in length and 0.1 cm in diameter. The specimen is totally submitted in one cassette. E - Received is one container designated left transition zone. The specimen consists of one elongated fragment of light arredondo-white soft tissue measuring 2.2 cm in length and 0.1 cm in diameter. The specimen is totally submitted in one cassette. / GLORIA:vineet 03/20/2021 TC:3 CPT: 74772 x5
== END | disposition home or self-care (01) ==
LOC: LABSPEC 16:32
PROVIDERS: PCP Nurse Practitioner Primary Care; Referring Provider Urology; Visit Provider Urology
DX: R97.20 Elevated prostate specific antigen [PSA] (principal)
CPT/HCPCS: 88305; G0416

== ENCOUNTER 2021-09-19 16:33 | Emergency (ER) | payer OTHER, SELFPAY ==
[2021-09-19 16:34] VITALS: BP 154/73; PULSE 99; RESP 16; TEMP 36.8; O2SAT 95; BMI 30.6
--- NOTE | 2021-09-19 16:46 | ED.VIS.LOWEX ---
HPI History of Present Illness Chief Complaint: Lower Extremity Injury Informant: patient and spouse/S.O. Narrative Narrative: Patient was standing next to a vent tractor mower. He accidentally hit the hydraulic lever that made the mower rolled forward. Blades were not spinning. But one of the tires rolled up onto his right leg. He has pain in the mid to slightly proximal tib-fib area of the right. There is an abrasion in the front of his knee but the knee is not hurting. He has prior significant open fracture of the right ankle and had skin flaps. However, that area looks the same and is not hurting. Last tetanus was about 4 years ago. No other injury. [facility] Medical History Injury of right lower extremity Home Medications penicillin V potassium 500 mg PO DAILY 07/24/20 [History Last Taken Unknown] aspirin 81 mg PO DAILY@0800 07/25/20 [History Last Taken Unknown] amlodipine 10 mg PO DAILY 09/19/21 [History Last Taken Unknown] lisinopril 40 mg PO DAILY 09/19/21 [History Last Taken Unknown] oxycodone-acetaminophen [Percocet] 1 tab PO Q6H PRN 3 Days #12 tab 09/19/21 [Rx Last Taken Unknown] Allergy/AdvReac Type Severity Reaction Status Date / Time Sulfa (Sulfonamide Allergy Unknown Verified 09/19/21 16:34 Antibiotics) Social History Smoking Status: Former smoker ROS ROS ED Constitutional Constitutional ED: Denies fever(s) Cardiovascular Cardiovascular: Denies chest pain Gastrointestinal Gastrointestinal: Denies nausea or vomiting Musculoskeletal Musculoskeletal: Reports arthralgias and other Details: See history of present illness Integumentary Reports Abrasions Neurologic Neurologic: Denies paresthesias or weakness Hematologic/Lymphatic Hematologic/Lymphatic: Denies easy bleeding or easy bruising Allergic/Immunologic Allergic/Immunologic ED: Denies urticaria EXAM Physical Exam Const Vital Signs: 09/19/21 16:34 Temperature 98.2 F Temperature Source Temporal Pulse Rate 99 Respiratory Rate 16 Blood Pressure 154/73 H Blood Pressure Mean 100 Pulse Ox 95 Oxygen Delivery Method Room Air Positive well nourished and well developed General Appearance ED: well developed and NAD HEENT Reports moist mucous membranes normocephalic Chest Wall inspection of chest normal Resp normal respiratory effort Cardio regular rate GI Palpation: soft Back/Spine no CVA tenderness Cervical Spine: Negative for cervical spine tenderness Thoracic Spine / Upper Back: Negative for thoracic spinal tenderness Lumbar Spine / Lower Back: Negative for lumbar spinal tenderness Extremity Extremity Narrative: Patient has deformities of the ankle but both he and his states those are normal and left over from his prior surgery and skin grafting. He has a 5 cm abrasion anterior knee but it really does not open up. He has tenderness in the mid tib-fib but no deformity in that area. Neuro oriented x3 Sensorium / Orientation: alert Sensory Exam: No sensory level loss detected Motor Exam: strength 5/5 throughout Psych mental status grossly normal Skin Skin Narrative: Abrasion as above. MDM MDM MDM Narrative Medical decision making narrative: Patient's x-ray shows a nondisplaced fracture distal tib-fib. It is in excellent position. I discussed the case with Dr. Samuel Alfonso. He stated if the patient wants to consider nonoperative treatment we can splint it and have him follow-up in the office. Patient did want to try this. Procedure: Right lower extremity long-leg splint: We did discuss risk benefits. Patient was given oxycodone for pain. He had originally not wanted any pain meds. We put a 5 inch fiberglass splint posteriorly up to his mid thigh. I then used sugar-tong around the ankle that came up to the proximal calf distal to the knee but still well above the fracture line. I have already added extra cushioning around the foot heel and ankle. We discussed that if this is tight he should come back in. He tolerated this exceptionally well. Patient first for his crutches. He states with his ankle fracture 4 years ago he spent almost 8 months on crutches. He would much rather use those and a walker. Radiography Diagnostic Testing: Clinical Impression(s) from Imaging Studies Tibia/Fibula X-Ray 09/19/21 16:50 IMPRESSION: Acute nondisplaced oblique fracture of the distal shaft of the tibia and fibula. 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 Instructions: ED Fracture, Lower Extremity Prescriptions: New oxycodone-acetaminophen [Percocet] 5-325 mg tablet 1 tab PO Q6H PRN (Reason: pain) 3 Days Qty: 12 RF: 0 No Action penicillin V potassium 250 MG tablet 500 mg PO DAILY RF: 0 aspirin 81 MG tablet,chewable 81 mg PO DAILY@0800 RF: 0 amlodipine 10 mg Tablet 10 mg PO DAILY RF: 0 lisinopril 40 mg Tablet 40 mg PO DAILY RF: 0 Primary Care Provider: Luz Ryan NP Referrals: Donald Lopez MD [STAFF PHYSICIAN] - As soon as possible (Call in the morning for a appointment in 1 to 2 days) Luz Ryan NP, [facility] [Primary Care Provider] - Disposition Disposition: Home, Self Care
--- NOTE | 2021-09-19 16:50 | RAD_ITS ---
STUDY: X-RAY - RIGHT TIBIA AND FIBULA REASON FOR EXAM: Male, 61 years old. trauma TECHNIQUE: 2 view(s) of the tibia and fibula were obtained. COMPARISON: None. FINDINGS: Acute nondisplaced oblique fracture of the distal shaft of the tibia and fibula. Healed fractures of the distal shaft of the tibia and fibula distal to the acute fracture. The soft tissue structures are unremarkable. RAD/Tibia & Fibula 2 Views IMPRESSION: Acute nondisplaced oblique fracture of the distal shaft of the tibia and fibula. Electronically Signed: Erik Diaz MD at 17:15 EDT ,
[2021-09-19] MEDS: oxyCODONE 5 MG Tablet 10 MG PO (17:26)
--- NOTE | 2021-09-19 18:20 | RAD_ITS ---
EXAM: XR RIGHT TIBIA AND FIBULA, 2 VIEWS CLINICAL INDICATION: trauma, post splint TECHNIQUE: Frontal and lateral views of the right tibia and fibula. This report was created using [employer] report generation technology. COMPARISON: Study done earlier today. FINDINGS: BONES/JOINTS: Acute fracture of the distal tibia and fibula. Fusion of the tibia to the talus. Healed distal fibular fracture. Preservation of the joint space. No sclerotic or destructive changes observed. SOFT TISSUES: Metallic susy overlying the distal lateral tibia. No soft tissue swelling or gas. OTHER FINDINGS: Splint in place. RAD/Tibia & Fibula 2 Views IMPRESSION: Acute fracture of the distal tibia and fibula. Electronically Signed: Marko Dent MD at 18:35 EDT Reading Location ID and State: [facility] / [place] , Service support ,
== END 2021-09-19 18:25 | disposition home or self-care (01) ==
PROVIDERS: Emergency Provider Emergency Medicine; PCP Nurse Practitioner Primary Care; Visit Provider Emergency Medicine
DX: S82.234A Nondisplaced oblique fracture of shaft of right tibia, initial encounter for closed fracture (principal); S82.434A Nondisplaced oblique fracture of shaft of right fibula, initial encounter for closed fracture; S80.219A Abrasion, unspecified knee, initial encounter; W28.XXXA Contact with powered lawn mower, initial encounter; Z79.82 Long term (current) use of aspirin; Z79.899 Other long term (current) drug therapy; Z87.891 Personal history of nicotine dependence
CPT/HCPCS: 29505; 73590; 99284

== ENCOUNTER → 2021-10-16 | Outpatient (CLI) | payer OTHER, SELFPAY ==
[2021-10-16 12:50] LABS: Hematocrit 40.4 % (40-54); Mean Corp Hgb Conc 34.7 g/dL (32-36); Mean Corpuscular Volume 92.2 fL (80-94); Mean Platelet Vol. 9.4 fl (6.2-12.0); Platelet Count 356 K/mm3 (150-450); RBC Distribution Width CV 12.4 % (11.6-14.6); RBC Distribution Width SD 42.5 fl (35.1-43.9); Red Blood Count 4.38 M/mm3 (4.6-6.2); White Blood Count 6.6 K/mm3 (4.4-11.0)
[2021-10-16 13:07] LABS: Anion Gap 9 (5-15); BUN 13 mg/dL (7-18); BUN/Creat Ratio 15.6 RATIO (10-20); Calcium,Total 9.3 mg/dL (8.5-10.1); Chloride 95 mmol/L (98-107); Creatinine, Serum 0.84 mg/dL (0.70-1.30); EST Glomerular Filtration Rate 99 mL/min (>60); Est Glom Filt Rate - Afr Amer 119 mL/min (>60); Glucose 98 mg/dL (74-106); Potassium 4.7 mmol/L (3.5-5.1); Sodium Level 129 mmol/L (136-145)
== END | disposition home or self-care (01) ==
PROVIDERS: PCP Nurse Practitioner Primary Care
DX: T84.498A Other mechanical complication of other internal orthopedic devices, implants and grafts, initial encounter (principal)
CPT/HCPCS: 36415; 80048; 85027

== ENCOUNTER → 2022-01-10 | Outpatient (CLI) | payer OTHER, SELFPAY ==
[2022-01-10 13:02] LABS: ALB/GLOB Ratio 0.9 RATIO (0.9-2.4); AST(SGOT) 25 U/L (15-37); Alanine Aminotransfer ALT/SGPT 25 U/L (16-61); Albumin, Serum 3.6 g/dL (3.2-5.0); Alkaline Phosphatase 160 U/L (45-117); Anion Gap 9 (5-15); BUN 15 mg/dL (7-18); BUN/Creat Ratio 16.6 RATIO (10-20); Calcium,Total 8.8 mg/dL (8.5-10.1); Chloride 97 mmol/L (98-107); Creatinine, Serum 0.91 mg/dL (0.70-1.30); EST Glomerular Filtration Rate 90 mL/min (>60); Est Glom Filt Rate - Afr Amer 109 mL/min (>60); Globulin 4.1 g/dL (2.2-4.2); Glucose 88 mg/dL (74-106); Potassium 4.6 mmol/L (3.5-5.1); Protein, Total 7.7 g/dL (6.4-8.2); Sodium Level 130 mmol/L (136-145)
== END | disposition home or self-care (01) ==
LOC: MTLAB 09:51
PROVIDERS: PCP Nurse Practitioner Primary Care; Referring Provider Nurse Practitioner Primary Care; Visit Provider Nurse Practitioner Primary Care
DX: E87.1 Hypo-osmolality and hyponatremia (principal)
CPT/HCPCS: 36415; 80053

== ENCOUNTER → 2022-11-07 | Outpatient (CLI) | payer OTHER, SELFPAY ==
[2022-11-07 12:30] LABS: Hematocrit 40.9 % (40-54); Hemoglobin 14.2 g/dL (13.0-16.5); Mean Corp Hgb Conc 34.7 g/dL (32-36); Mean Corpuscular Hgb 33.3 pg (27.0-32.0); Mean Platelet Vol. 9.2 fl (6.2-12.0); Platelet Count 345 K/mm3 (150-450); RBC Distribution Width CV 13.1 % (11.6-14.6); RBC Distribution Width SD 46.4 fl (35.1-43.9); Red Blood Count 4.26 M/mm3 (4.6-6.2); White Blood Count 7.5 K/mm3 (4.4-11.0)
[2022-11-07 13:03] LABS: ALB/GLOB Ratio 0.8 RATIO (0.9-2.4); AST(SGOT) 28 U/L (15-37); Alanine Aminotransfer ALT/SGPT 23 U/L (16-61); Albumin, Serum 3.4 g/dL (3.2-5.0); Alkaline Phosphatase 90 U/L (45-117); Anion Gap 9 (5-15); BUN 18 mg/dL (7-18); BUN/Creat Ratio 18.3 RATIO (10-20); Calcium,Total 8.9 mg/dL (8.5-10.1); Chloride 100 mmol/L (98-107); Creatinine, Serum 0.98 mg/dL (0.70-1.30); EST Glomerular Filtration Rate 81 mL/min (>60); Est Glom Filt Rate - Afr Amer 99 mL/min (>60); Globulin 4.1 g/dL (2.2-4.2); Glucose 86 mg/dL (74-106); Potassium 4.9 mmol/L (3.5-5.1); Protein, Total 7.5 g/dL (6.4-8.2); Sodium Level 130 mmol/L (136-145)
== END | disposition home or self-care (01) ==
LOC: MTLAB 10:24
PROVIDERS: PCP Nurse Practitioner Primary Care
DX: T84.7XXD Infection and inflammatory reaction due to other internal orthopedic prosthetic devices, implants and grafts, subsequent encounter (principal); X58.XXXD Exposure to other specified factors, subsequent encounter
CPT/HCPCS: 36415; 80053; 85027

== ENCOUNTER → 2023-07-11 | Outpatient (CLI) | payer MEDICARE, SELFPAY ==
[2023-07-11 12:49] LABS: Hematocrit 42.3 % (40-54); Hemoglobin 14.1 g/dL (13.0-16.5); Mean Corp Hgb Conc 33.3 g/dL (32-36); Mean Corpuscular Hgb 31.1 pg (27.0-32.0); Mean Corpuscular Volume 93.4 fL (80-94); Mean Platelet Vol. 8.7 fl (6.2-12.0); Platelet Count 306 K/mm3 (150-450); RBC Distribution Width CV 13.7 % (11.6-14.6); RBC Distribution Width SD 46.8 fl (35.1-43.9); Red Blood Count 4.53 M/mm3 (4.6-6.2); White Blood Count 6.6 K/mm3 (4.4-11.0)
[2023-07-11 13:00] LABS: ALB/GLOB Ratio 0.9 RATIO (0.9-2.4); AST(SGOT) 37 U/L (15-37); Alanine Aminotransfer ALT/SGPT 30 U/L (16-61); Albumin, Serum 3.5 g/dL (3.2-5.0); Alkaline Phosphatase 92 U/L (45-117); Anion Gap 8 (5-15); BUN 13 mg/dL (7-18); BUN/Creat Ratio 13.3 RATIO (10-20); Calcium,Total 8.8 mg/dL (8.5-10.1); Chloride 96 mmol/L (98-107); Cholesterol 163 mg/dL (200); Creatinine, Serum 0.98 mg/dL (0.70-1.30); EST Glomerular Filtration Rate 82 mL/min (>60); Est Glom Filt Rate - Afr Amer 99 mL/min (>60); Globulin 3.9 g/dL (2.2-4.2); Glucose 96 mg/dL (74-106); High Density Lipoprotein 107 mg/dL; PSA,Total- Diagnostic 9.54 ng/mL (0.0-4.0); Potassium 4.6 mmol/L (3.5-5.1); Protein, Total 7.4 g/dL (6.4-8.2); Sodium Level 128 mmol/L (136-145); Triglycerides 28 mg/dL; Very Low Density Lipoprotein 6 mg/dL (5-40)
== END | disposition home or self-care (01) ==
LOC: MTLAB 09:56
PROVIDERS: PCP Nurse Practitioner Primary Care; Referring Provider Nurse Practitioner Primary Care; Visit Provider Nurse Practitioner Primary Care
DX: I10 Essential (primary) hypertension (principal); R97.20 Elevated prostate specific antigen [PSA]
CPT/HCPCS: 36415; 80053; 80061; 84153; 85027

== ENCOUNTER → 2023-09-19 | Outpatient (CLI) | payer MEDICARE, SELFPAY ==
[2023-09-19 12:46] LABS: Absolute Lymphocyte Count 1.48 X10^3/uL (0.83-4.51); Absolute Neutrophil Count 3.4 X10^3/uL (2.0-7.7); Basophil# 0.03 X10^3/uL; Basophil% 0.5 % (0-1); Eosinophil# 0.16 X10^3/uL; Eosinophils% 2.7 % (0-5); Hemoglobin 14.1 g/dL (13.0-16.5); Lymphocyte # 1.48 X10^3/ul (0.83-4.51); Lymphocyte % 24.9 % (19-41); Mean Corp Hgb Conc 33.6 g/dL (32-36); Mean Corpuscular Hgb 31.1 pg (27.0-32.0); Mean Corpuscular Volume 92.5 fL (80-94); Mean Platelet Vol. 9.4 fl (6.2-12.0); Monocyte# 0.89 X10^3/uL; NRBC Flagged by Analyzer 0 % (0-5); Neutrophil # 3.37 X10^3/uL (2.7-7.7); Neutrophil % 56.6 % (47-70); Platelet Count 208 K/mm3 (150-450); RBC Distribution Width CV 14.3 % (11.6-14.6); RBC Distribution Width SD 48.6 fl (35.1-43.9); Red Blood Count 4.54 M/mm3 (4.6-6.2)
[2023-09-19 13:17] LABS: ALB/GLOB Ratio 0.9 RATIO (0.9-2.4); AST(SGOT) 33 U/L (15-37); Alanine Aminotransfer ALT/SGPT 30 U/L (16-61); Albumin, Serum 3.6 g/dL (3.2-5.0); Alkaline Phosphatase 85 U/L (45-117); Anion Gap 9 (5-15); BUN 15 mg/dL (7-18); BUN/Creat Ratio 18.6 RATIO (10-20); Calcium,Total 9.1 mg/dL (8.5-10.1); Chloride 99 mmol/L (98-107); Creatinine, Serum 0.81 mg/dL (0.70-1.30); EST Glomerular Filtration Rate 102 mL/min (>60); Est Glom Filt Rate - Afr Amer 124 mL/min (>60); Globulin 4.2 g/dL (2.2-4.2); Glucose 88 mg/dL (74-106); Potassium 4.7 mmol/L (3.5-5.1); Protein, Total 7.8 g/dL (6.4-8.2); Sodium Level 130 mmol/L (136-145)
== END | disposition home or self-care (01) ==
PROVIDERS: PCP Nurse Practitioner Primary Care; Referring Provider Internal Medicine; Visit Provider Internal Medicine
DX: M86.661 Other chronic osteomyelitis, right tibia and fibula (principal)
CPT/HCPCS: 36415; 80053; 85025

== ENCOUNTER → 2024-01-16 | Outpatient (CLI) | payer MEDICARE, SELFPAY ==
[2024-01-16 10:33] LABS: Hematocrit 42.6 % (40-54); Hemoglobin 14.4 g/dL (13.0-16.5); Mean Corp Hgb Conc 33.8 g/dL (32-36); Mean Corpuscular Hgb 32.1 pg (27.0-32.0); Mean Corpuscular Volume 95.1 fL (80-94); Mean Platelet Vol. 8.5 fl (6.2-12.0); Platelet Count 340 K/mm3 (150-450); RBC Distribution Width CV 13.3 % (11.6-14.6); RBC Distribution Width SD 46.5 fl (35.1-43.9); Red Blood Count 4.48 M/mm3 (4.6-6.2); White Blood Count 5.7 K/mm3 (4.4-11.0)
[2024-01-16 11:15] LABS: ALB/GLOB Ratio 0.9 RATIO (0.9-2.4); AST(SGOT) 30 U/L (15-37); Alanine Aminotransfer ALT/SGPT 22 U/L (16-61); Albumin, Serum 3.5 g/dL (3.2-5.0); Alkaline Phosphatase 89 U/L (45-117); Anion Gap 10 (5-15); BUN 14 mg/dL (7-18); BUN/Creat Ratio 16.2 RATIO (10-20); Calcium,Total 9.1 mg/dL (8.5-10.1); Chloride 100 mmol/L (98-107); Cholesterol 170 mg/dL (200); Creatinine, Serum 0.86 mg/dL (0.70-1.30); EST Glomerular Filtration Rate 94 mL/min (>60); Est Glom Filt Rate - Afr Amer 114 mL/min (>60); Globulin 3.9 g/dL (2.2-4.2); Glucose 98 mg/dL (74-106); High Density Lipoprotein 110 mg/dL; PSA,Total - Annual Screen 7.81 ng/mL (0.00-4.00); Potassium 4.6 mmol/L (3.5-5.1); Protein, Total 7.4 g/dL (6.4-8.2); Sodium Level 133 mmol/L (136-145); Triglycerides 42 mg/dL; Very Low Density Lipoprotein 8 mg/dL (5-40)
== END | disposition home or self-care (01) ==
LOC: MTLAB 08:56
PROVIDERS: PCP Nurse Practitioner Primary Care; Referring Provider Nurse Practitioner Primary Care; Visit Provider Nurse Practitioner Primary Care
DX: Z12.5 Encounter for screening for malignant neoplasm of prostate (principal); I10 Essential (primary) hypertension
CPT/HCPCS: 36415; 80053; 80061; 84153; 85027; G0103

== ENCOUNTER → 2024-07-09 | Outpatient (CLI) | payer MEDICARE, OTHER, SELFPAY ==
[2024-07-09 12:45] LABS: Hematocrit 41.7 % (40-54); Hemoglobin 14.2 g/dL (13.0-16.5); Mean Corp Hgb Conc 34.1 g/dL (32-36); Mean Corpuscular Hgb 31.6 pg (27.0-32.0); Mean Corpuscular Volume 92.9 fL (80-94); Mean Platelet Vol. 8.8 fl (6.2-12.0); Platelet Count 353 K/mm3 (150-450); RBC Distribution Width CV 14.5 % (11.6-14.6); RBC Distribution Width SD 49.5 fl (35.1-43.9); Red Blood Count 4.49 M/mm3 (4.6-6.2); White Blood Count 7.9 K/mm3 (4.4-11.0)
[2024-07-09 13:47] LABS: ALB/GLOB Ratio 1.2 RATIO (0.9-2.4); AST(SGOT) 34 U/L (<=37); Alanine Aminotransfer ALT/SGPT 18 U/L (<=46); Albumin, Serum 4.2 g/dL (3.4-4.8); Alkaline Phosphatase 93 U/L (40-129); Anion Gap 15 (5-15); BUN 20 mg/dL (4-19); BUN/Creat Ratio 21.6 RATIO (10-20); Calcium,Total 9.7 mg/dL (7.6-11.0); Carbon Dioxide 20.7 mmol/L (21.0-32.0); Chloride 95 mmol/L (98-108); EST Glomerular Filtration Rate 94 (>60); Globulin 3.4 g/dL (2.2-4.2); Glucose 79 mg/dL (70-99); PSA,Total- Diagnostic 6.27 ng/mL (0.00-4.00); Potassium 5.3 mmol/L (3.3-5.1); Protein, Total 7.7 g/dL (5.9-8.4); Sodium Level 131 mmol/L (133-145); Total Bilirubin 0.39 mg/dL (0.00-1.30)
[2024-07-09 14:16] LABS: Cholesterol 169 mg/dL (<=200); High Density Lipoprotein 107 mg/dL; Low Density Lipoprotein Calc. 56 mg/dL; Triglycerides 32 mg/dL; Very Low Density Lipoprotein 6 mg/dL (5-40); cholesterol:hdl ratio screen 1.58
== END | disposition home or self-care (01) ==
PROVIDERS: PCP Nurse Practitioner Primary Care; Referring Provider Nurse Practitioner Primary Care; Visit Provider Nurse Practitioner Primary Care
DX: I10 Essential (primary) hypertension (principal); R97.20 Elevated prostate specific antigen [PSA]
CPT/HCPCS: 36415; 80053; 80061; 84153; 85027

== ENCOUNTER → 2024-10-20 | Outpatient (CLI) | payer MEDICARE, OTHER, SELFPAY ==
[2024-10-20 11:00] LABS: Anion Gap 11 (5-15); BUN 11 mg/dL (4-19); BUN/Creat Ratio 12.9 RATIO (10-20); Calcium,Total 8.9 mg/dL (7.6-11.0); Carbon Dioxide 23.2 mmol/L (21.0-32.0); Chloride 97 mmol/L (98-108); Creatinine, Serum 0.88 mg/dL (0.70-1.20); EST Glomerular Filtration Rate 95 (>60); Glucose 101 mg/dL (70-99); Potassium 4.6 mmol/L (3.3-5.1); Sodium Level 132 mmol/L (133-145)
== END | disposition home or self-care (01) ==
PROVIDERS: PCP Nurse Practitioner Primary Care; Referring Provider Nurse Practitioner Primary Care; Visit Provider Nurse Practitioner Primary Care
DX: I10 Essential (primary) hypertension (principal)
CPT/HCPCS: 36415; 80048